=== PATIENT | male | born 1955 | race African-American/Black ===

== ENCOUNTER 2017-03-01 13:03 | Inpatient (IN) | payer MEDICAID, OTHER ==
--- NOTE | 2017-03-01 13:42 | EDPHY ---
H & P Stated Complaint: liver failure, worsening pain and ascites x1 month Time Seen by Provider: 03/01/17 13:27 HPI/ROS: CHIEF COMPLAINT: Abdominal pain, fever HISTORY OF PRESENT ILLNESS: Patient is a 62-year-old man with a history of hepatitis C who comes to the emergency department complaining of diffuse abdominal pain and fever last night of 101.8. He went to an urgent care this morning who told him he had ascites and told him to come directly to the emergency department. He and his significant other also complains that he has been fatigued. No diarrhea, no vomiting. He did take some Gas-X last night which she states helped to some degree. No urinary symptoms. REVIEW OF SYSTEMS: Constitutional: denies: chills, fever, recent illness, recent injury EENTM: denies: blurred vision, double vision, nose congestion Respiratory: denies: cough, shortness of breath Cardiac: denies: chest pain, irregular heart rate, lightheadedness, palpitations Gastrointestinal/Abdominal: denies: abdominal pain, diarrhea, nausea, vomiting, blood streaked stools Genitourinary: denies: dysuria, frequency, hematuria, pain Musculoskeletal: denies: joint pain, muscle pain Skin: denies: lesions, rash, jaundice, bruising Neurological: denies: headache, numbness, paresthesia, tingling, dizziness, weakness Hematologic/Lymphatic: denies: blood clots, easy bleeding, easy bruising Immunologic/allergic: denies: HIV/AIDS, transplant EXAM: GENERAL: Well-appearing, well-nourished and in no acute distress. No lethargy or confusion HEAD: Atraumatic, normocephalic. EYES: Slightly jaundice eyes which states her baseline, Pupils equal round and reactive to light, extraocular movements intact, sclera anicteric, conjunctiva are normal. ENT: TMs normal, nares patent, oropharynx clear without exudates. Moist mucous membranes. NECK: Normal range of motion, supple without lymphadenopathy or JVD. LUNGS: Breath sounds clear to auscultation bilaterally and equal. No wheezes rales or rhonchi. HEART: Regular rate and rhythm without murmurs, rubs or gallops. ABDOMEN: Distension, Soft, nontender, normoactive bowel sounds. No guarding, no rebound. No masses appreciated. BACK: No CVA tenderness, no spinal tenderness, step-offs or deformities EXTREMITIES: Negative asterixis, negative tremor, Normal range of motion, no pitting or edema. No clubbing or cyanosis. NEUROLOGICAL: Cranial nerves II through XII grossly intact. Normal speech, normal gait. 5/5 strength, normal movement in all extremities, normal sensation PSYCH: Normal mood, normal affect. SKIN: Warm, dry, normal turgor, no visible rashes or lesions. Source: Patient Exam Limitations: No limitations - Personal History Current Tetanus/Diphtheria Vaccine: Yes Tetanus Vaccine Date: 2008 - Medical/Surgical History Hx Asthma: No Hx Chronic Respiratory Disease: No Hx Diabetes: No Hx Cardiac Disease: No Hx Renal Disease: No Hx Cirrhosis: Yes Hx Alcoholism: Yes Hx HIV/AIDS: No Hx Splenectomy or Spleen Trauma: No Other PMH: Hep C, liver failure - Family History Significant Family History: No pertinent family hx - Social History Smoking Status: Former smoker Alcohol Use: Sober Drug Use: None Constitutional: Initial Vital Signs Temperature (C) 36.8 C 03/01/17 13:08 Heart Rate 94 03/01/17 13:08 Respiratory Rate 18 03/01/17 13:08 Blood Pressure 150/87 H 03/01/17 13:08 O2 Sat (%) 96 03/01/17 13:08 O2 Delivery Mode Room Air Allergies/Adverse Reactions: ibuprofen Allergy (Verified 03/01/17 13:08) Home Medications: Medication Instructions Recorded Herbals/Supplements -Info Only 1 ea PO DAILY 03/01/17 Medical Decision Making - Diagnostics Imaging Results: Imaging Impressions Abdomen CT 03/01/17 13:39 Impression: 1. Hepatomegaly with heterogeneous appearance of the anterior and posterior inferior right hepatic lobe, nonspecific but concerning for potential infiltrative hepatocellular neoplasm given the patient's chronic hepatitis C history. What is the patient's serum alpha fetoprotein level? 2. Contracted gallbladder. 3. Ascites, with the largest pocket seen in the right lower quadrant of the abdomen. Given the patient's history of fever, SBP is not excluded. 4. There is no evidence of a mechanical bowel obstruction or pneumoperitoneum. 5. Urinary bladder wall thickening. Correlation with urinalysis is suggested. 6. Right basilar subsegmental atelectasis with trace right pleural effusion. 7. Mild nonspecific distal thoracic esophageal wall thickening. Findings were discussed with LARRY GORE MD at 15:24, on 03/01/2017. ED Course/Re-evaluation: The patient is doing well with fluids. Vital signs remained stable. We discussed his CT results. I will admit the medical service. He will likely return require paracentesis with ultrasound guidance. Antibiotics have been started. 4:30 p.m. I discussed the case with Dr. snow who agrees with admission and requests ultrasound-guided paracentesis. Differential Diagnosis: Partial list of the Differential diagnosis considered include but were not limited to; spontaneous bacterial peritonitis, ascites, obstruction, perforation, volvulus and although unlikely based on the history and physical exam, I also considered ischemia, acute coronary disease, pneumonia, urinary tract infection, dissection, aneurysm. - Data Points Laboratory Results: Laboratory Results 03/01/17 13:30 03/01/17 13:30 03/01/17 03/01/17 03/01/17 14:10 13:40 13:30 WBC RBC Hgb Hct MCV MCH MCHC RDW Plt Count MPV Neut % (Auto) Lymph % (Auto) [place] % (Auto) Eos % (Auto) Baso % (Auto) Nucleat RBC Rel Count Absolute Neuts (auto) Absolute Lymphs (auto) Absolute Monos (auto) Absolute Eos (auto) Absolute Basos (auto) Absolute Nucleated RBC Immature Gran % Immature Gran # Platelet Estimate Polychromasia Hypochromasia Microcytic Cells Target Cells Oval Macrocytes Echinocytes Schistocytes PT INR APTT VBG Lactic Acid 4.0 mmol/L H mmol/L (0.7-2.1) Sodium 133 mEq/L L mEq/L (134-144) Potassium 4.1 mEq/L mEq/L (3.5-5.2) Chloride 100 mEq/L mEq/L (97-110) Carbon Dioxide 20 mEq/l L mEq/l (22-31) Anion Gap 13 mEq/L mEq/L (8-16) BUN 22 mg/dL mg/dL (7-23) Creatinine 1.4 mg/dL H mg/dL (0.7-1.3) Estimated GFR 52 Glucose 86 mg/dL mg/dL (70-100) Calcium 8.3 mg/dL L mg/dL (8.5-10.4) Total Bilirubin 5.6 mg/dL H mg/dL (0.1-1.4) Conjugated Bilirubin 3.8 mg/dL H mg/dL (0.0-0.5) Unconjugated Bilirubin 1.8 mg/dL H mg/dL (0.0-1.1) AST > 750 IU/L H IU/L (17-59) ALT 69 IU/L IU/L (21-72) Alkaline Phosphatase 152 IU/L H IU/L (38-126) Total Protein 9.0 g/dL H g/dL (6.3-8.2) Albumin 3.0 g/dL L g/dL (3.5-5.0) Lipase 213 IU/L IU/L (23-300) Urine Color DM Urine Appearance CLEAR Urine pH 5.0 (5.0-7.5) Ur Specific [place] 1.023 (1.002-1.030) Urine Protein NEGATIVE (NEGATIVE) Urine Ketones TRACE H (NEGATIVE) Urine Blood NEGATIVE (NEGATIVE) Urine Nitrate NEGATIVE (NEGATIVE) Urine Bilirubin POSITIVE H (NEGATIVE) Urine Urobilinogen 4.0 EU H EU (0.2-1.0) Ur Leukocyte Esterase NEGATIVE (NEGATIVE) Urine Glucose NEGATIVE (NEGATIVE) 03/01/17 03/01/17 13:30 13:30 WBC 10.53 10^3/uL H 10^3/uL (3.80-9.50) RBC 4.10 10^6/uL L 10^6/uL (4.40-6.38) Hgb 10.5 g/dL L g/dL (13.7-17.5) Hct 29.7 % L % (40.0-51.0) MCV 72.4 fL L fL (81.5-99.8) MCH 25.6 pg L pg (27.9-34.1) MCHC 35.4 g/dL g/dL (32.4-36.7) RDW 26.7 % H % (11.5-15.2) Plt Count 440 10^3/uL H 10^3/uL (150-400) MPV 9.9 fL fL (8.7-11.7) Neut % (Auto) 68.2 % % (39.3-74.2) Lymph % (Auto) 19.5 % % (15.0-45.0) Caroline % (Auto) 10.0 % % (4.5-13.0) Eos % (Auto) 0.2 % L % (0.6-7.6) Baso % (Auto) 0.5 % % (0.3-1.7) Nucleat RBC Rel Count 0.5 % H % (0.0-0.2) Absolute Neuts (auto) 7.19 10^3/uL H 10^3/uL (1.70-6.50) Absolute Lymphs (auto) 2.05 10^3/uL 10^3/uL (1.00-3.00) Absolute Monos (auto) 1.05 10^3/uL H 10^3/uL (0.30-0.80) Absolute Eos (auto) 0.02 10^3/uL L 10^3/uL (0.03-0.40) Absolute Basos (auto) 0.05 10^3/uL 10^3/uL (0.02-0.10) Absolute Nucleated RBC 0.05 10^3/uL H 10^3/uL (0-0.01) Immature Gran % 1.6 % H % (0.0-1.1) Immature Gran # 0.17 10^3/uL H 10^3/uL (0.00-0.10) Platelet Estimate INCREASED H (ADEQ) Polychromasia 1+ H Hypochromasia 2+ H Microcytic Cells 1+ H Target Cells 1+ H Oval Macrocytes 2+ H Echinocytes 1+ H Schistocytes 1+ H PT 21.8 SEC H SEC (12.0-15.0) INR 1.89 H (0.83-1.16) APTT 29.9 SEC SEC (23.0-38.0) VBG Lactic Acid Sodium Potassium Chloride Carbon Dioxide Anion Gap BUN Creatinine Estimated GFR Glucose Calcium Total Bilirubin Conjugated Bilirubin Unconjugated Bilirubin AST ALT Alkaline Phosphatase Total Protein Albumin Lipase Urine Color Urine Appearance Urine pH Ur Specific [place] Urine Protein Urine Ketones Urine Blood Urine Nitrate Urine Bilirubin Urine Urobilinogen Ur Leukocyte Esterase Urine Glucose Medications Given: Discontinued Medications Ceftriaxone Sodium/Dextrose (Rocephin 1 Gm (Premix)) 50 mls @ 100 mls/hr IV EDNOW ONE PRN Reason: Protocol Stop: 03/01/17 14:44 Last Admin: 03/01/17 14:25 Dose: 50 mls Sodium Chloride (Ns) 2,500 mls @ 5,000 mls/hr 30 ml/kg infuse over 30 min ( 2500 ml) IV EDNOW ONE PRN Reason: Protocol Stop: 03/01/17 14:44 Last Admin: 03/01/17 14:30 Dose: 2,500 mls Departure - Departure Dis[facility]: [facility] Clinical Impression: Spontaneous bacterial peritonitis Condition: Fair
[2017-03-01 13:48] LABS: PLATELET COUNT 440 10^3/uL (150-400)
[2017-03-01 13:57] LABS: INR 1.89 (0.83-1.16); PROTIME(PATIENT) 21.8 SEC (12.0-15.0)
[2017-03-01] MEDS ORDERED: NS 2,500 ML IV ONE (14:15)
[2017-03-01] MEDS ORDERED: IOPAMIDOL (ISOVUE-300) 100 ML BTL ONE (14:34)
[2017-03-01] MEDS ORDERED: oxyCODONE IR 5 MG TAB PO PRN (16:44)
[2017-03-01] MEDS ORDERED: ONDANSETRON DISINTEGRATING 4 MG TAB PO PRN (16:44)
[2017-03-01] MEDS ORDERED: ONDANSETRON 4 MG/2 ML VIAL IVP PRN (16:44)
[2017-03-01] MEDS ORDERED: NS 1,000 ML IV SCH (16:45)
[2017-03-01] MEDS ORDERED: LIDOCAINE 1% 300 MG/30 ML SDV ONE (16:50)
--- NOTE | 2017-03-01 17:07 | PDGENHP ---
History and Physical - Chief Complaint Acute abdominal pain - History of Present Illness Primary care provider: None HPI: 62-year-old male presenting with acute abdominal pain characterized as a bloating sensation located diffusely across his abdomen with associated fever of 101.8 degrees F, generalized fatigue, jaundice. Patient reports onset of symptoms approximately 2 weeks ago, and duration progressive and worsening thereafter. He has also been experiencing approximately 1 month of early satiety, poor appetite, exacerbated by his abdominal bloating. He has attempted to manage his symptoms with Gas-X, and this is mildly alleviated the bloating, but immediately returns. He has also noticed a dark discoloration to his urine, but has not noticed any change in frequency and denies any dysuria. He has not been experiencing any diarrhea or any cognitive changes. Since he quit smoking 2 weeks ago, the patient has noted an increase in productive cough but otherwise denies any sore throat, shortness of breath, or rhinorrhea. History Information - Allergies/Home Medication List Allergies/Adverse Reactions: ibuprofen Allergy (Verified 03/01/17 13:08) Home Medications: Herbals/Supplements -Info Only 1 ea PO DAILY 03/01/17 [Last Taken Unknown] I have personally reviewed and updated: family history, medical history, social history, surgical history - Past Medical History Additional medical history: Hepatitis C virus diagnosis years ago, with evaluation by Dr. Hany Reyes in 2009. Gout, currently on a supplement over-the- counter - Surgical History Reports: no pertinent surgical hx - Family History Additional family history: No renal disease, no liver disease - Social History Smoking Status: Former smoker (Quit 2 weeks ago) Alcohol Use: Sober (Previous heavy use, quit 2 weeks ago) Drug Use: None (No IV drug use) Additional social history: Normally independent in his ADLs Review of Systems Review of Systems: ROS: 10pt was reviewed & negative except for what was stated in HPI & below Constitutional: Reports: fever, weakness, weight loss Respiratory: Reports: cough Gastrointestinal: Reports: abdominal pain, constipation, other (Bloating distension) Physical Exam Physical Exam: Temp Pulse Resp BP Pulse Ox 36.9 C 83 18 164/99 H 96 03/01/17 16:25 03/01/17 16:25 03/01/17 16:25 03/01/17 16:25 03/01/17 16:25 Constitutional: no apparent distress, not in pain, chronically ill appearing, uncomfortable Eyes: PERRL, EOMI, icteric sclera Ears, Nose, Mouth, Throat: moist mucous membranes, hearing normal, ears appear normal, no oral mucosal ulcers Cardiovascular: regular rate and rhythym, no murmur, rub, or gallop, edema ( Trace bilateral lower extremity) Respiratory: no respiratory distress, no rales or rhonchi, clear to auscultation Gastrointestinal: normoactive bowel sounds, tenderness (Mild diffusely throughout), ascites, distension (Moderate), other (Very warm abdomen), No guarding Skin: warm, other (Jaundiced), No rash Neurologic: AAOx3, sensation intact bilaterally, No weakness Psychiatric: interacting appropriately, not anxious, not encephalopathic, thought process linear Lab Data & Imaging Review 03/01/17 13:30 03/01/17 13:30 WBC 10.53 10^3/uL (3.80-9.50) H 03/01/17 13:30 RBC 4.10 10^6/uL (4.40-6.38) L 03/01/17 13:30 Hgb 10.5 g/dL (13.7-17.5) L 03/01/17 13:30 Hct 29.7 % (40.0-51.0) L 03/01/17 13:30 MCV 72.4 fL (81.5-99.8) L 03/01/17 13:30 MCH 25.6 pg (27.9-34.1) L 03/01/17 13:30 MCHC 35.4 g/dL (32.4-36.7) 03/01/17 13:30 RDW 26.7 % (11.5-15.2) H 03/01/17 13:30 Plt Count 440 10^3/uL (150-400) H 03/01/17 13:30 MPV 9.9 fL (8.7-11.7) 03/01/17 13:30 Neut % (Auto) 68.2 % (39.3-74.2) 03/01/17 13:30 Lymph % (Auto) 19.5 % (15.0-45.0) 03/01/17 13:30 [place] % (Auto) 10.0 % (4.5-13.0) 03/01/17 13:30 Eos % (Auto) 0.2 % (0.6-7.6) L 03/01/17 13:30 Baso % (Auto) 0.5 % (0.3-1.7) 03/01/17 13:30 Nucleat RBC Rel Count 0.5 % (0.0-0.2) H 03/01/17 13:30 Absolute Neuts (auto) 7.19 10^3/uL (1.70-6.50) H 03/01/17 13:30 Absolute Lymphs (auto) 2.05 10^3/uL (1.00-3.00) 03/01/17 13:30 Absolute Monos (auto) 1.05 10^3/uL (0.30-0.80) H 03/01/17 13:30 Absolute Eos (auto) 0.02 10^3/uL (0.03-0.40) L 03/01/17 13:30 Absolute Basos (auto) 0.05 10^3/uL (0.02-0.10) 03/01/17 13:30 Absolute Nucleated RBC 0.05 10^3/uL (0-0.01) H 03/01/17 13:30 Immature Gran % 1.6 % (0.0-1.1) H 03/01/17 13:30 Immature Gran # 0.17 10^3/uL (0.00-0.10) H 03/01/17 13:30 Platelet Estimate INCREASED (ADEQ) H 03/01/17 13:30 Polychromasia 1+ H 03/01/17 13:30 Hypochromasia 2+ H 03/01/17 13:30 Microcytic Cells 1+ H 03/01/17 13:30 Target Cells 1+ H 03/01/17 13:30 Oval Macrocytes 2+ H 03/01/17 13:30 Echinocytes 1+ H 03/01/17 13:30 Schistocytes 1+ H 03/01/17 13:30 PT 21.8 SEC (12.0-15.0) H 03/01/17 13:30 INR 1.89 (0.83-1.16) H 03/01/17 13:30 APTT 29.9 SEC (23.0-38.0) 03/01/17 13:30 VBG Lactic Acid 3.3 mmol/L (0.7-2.1) H 03/01/17 16:30 Sodium 133 mEq/L (134-144) L 03/01/17 13:30 Potassium 4.1 mEq/L (3.5-5.2) 03/01/17 13:30 Chloride 100 mEq/L (97-110) 03/01/17 13:30 Carbon Dioxide 20 mEq/l (22-31) L 03/01/17 13:30 Anion Gap 13 mEq/L (8-16) 03/01/17 13:30 BUN 22 mg/dL (7-23) 03/01/17 13:30 Creatinine 1.4 mg/dL (0.7-1.3) H 03/01/17 13:30 Estimated GFR 52 03/01/17 13:30 Glucose 86 mg/dL (70-100) 03/01/17 13:30 Calcium 8.3 mg/dL (8.5-10.4) L 03/01/17 13:30 Total Bilirubin 5.6 mg/dL (0.1-1.4) H 03/01/17 13:30 Conjugated Bilirubin 3.8 mg/dL (0.0-0.5) H 03/01/17 13:30 Unconjugated Bilirubin 1.8 mg/dL (0.0-1.1) H 03/01/17 13:30 AST > 750 IU/L (17-59) H 03/01/17 13:30 ALT 69 IU/L (21-72) 03/01/17 13:30 Alkaline Phosphatase 152 IU/L (38-126) H 03/01/17 13:30 Total Protein 9.0 g/dL (6.3-8.2) H 03/01/17 13:30 Albumin 3.0 g/dL (3.5-5.0) L 03/01/17 13:30 Lipase 213 IU/L (23-300) 03/01/17 13:30 Urine Color DM 03/01/17 14:10 Urine Appearance CLEAR 03/01/17 14:10 Urine pH 5.0 (5.0-7.5) 03/01/17 14:10 Ur Specific [place] 1.023 (1.002-1.030) 03/01/17 14:10 Urine Protein NEGATIVE (NEGATIVE) 03/01/17 14:10 Urine Ketones TRACE (NEGATIVE) H 03/01/17 14:10 Urine Blood NEGATIVE (NEGATIVE) 03/01/17 14:10 Urine Nitrate NEGATIVE (NEGATIVE) 03/01/17 14:10 Urine Bilirubin POSITIVE (NEGATIVE) H 03/01/17 14:10 Urine Urobilinogen 4.0 EU (0.2-1.0) H 03/01/17 14:10 Ur Leukocyte Esterase NEGATIVE (NEGATIVE) 03/01/17 14:10 Urine Glucose NEGATIVE (NEGATIVE) 03/01/17 14:10 Visualized and Interpreted imaging results: Yes Interpretation: Abdominal CT demonstrating ascites, heterogenous appearance to the liver, atelectasis Assessment & Plan Assessment: 62-year-old male presents with ascites and suspected spontaneous bacterial peritonitis complicated by acute kidney injury, metabolic acidosis, hyponatremia Plan: 1. Ascites with suspected cirrhosis. Acute, new problem this provider, further workup indicated. Most likely secondary to cirrhosis in the setting of progressive hepatitis C virus and heavy alcohol use, with possible hepatic cell carcinoma on abdominal CT imaging -send cytology from ascitic fluid -send alpha fetoprotein -continue to monitor synthetic function of liver with daily INR, liver panel -recommend complete sobriety, avoid Tylenol -will get GI consult as the patient is at high risk for developing hepatorenal syndrome 2. Suspected spontaneous bacterial peritonitis. Acute, new problem this provider, further workup indicated. Evidenced by fever, warm, tender abdomen in the setting of ascites with leukocytosis -discussed with Dr. Delgado Olson, he has informed me that he has discussed with Dr. Georgia Leblanc and she will perform ultrasound-guided urgent paracentesis, fluid to be sent for cell count, diff, culture -administer empiric IV ceftriaxone -send blood cultures -will hold on infectious disease consultation until the above results have been obtained -will send respiratory viral panel to ensure the patient's fevers of symptom and fatigued are not secondary to a viral infection -as needed oxycodone, antiemetics 3. Acute kidney injury. Most likely secondary to hypovolemia in the setting of infection and cirrhosis -status post IV fluids emergency department, continue with ongoing normal saline , repeat level in a.m., monitor strict I&Os 4. Hyponatremia. Acute, most likely secondary to poor renal perfusion in the setting of above, give normal saline and reassess in a.m. 5. Metabolic acidosis. Acute, secondary to lactic acid, most likely with poor clearance in the setting of cirrhosis, I do not believe that the patient has severe sepsis at this time and we will repeat lactic acid level and anticipate that it may remain elevated despite the patient being hemodynamically stable -continue to trend 6. End-stage liver disease. The patient's lab values are suggestive of end- stage liver disease with an elevated INR, elevated creatinine, elevated bilirubin, elevated transaminases, and his elevated platelet count may be reactive in the setting of infection -as mentioned above, will consult with Gastroenterology -order outside records including most recent clinic note from Dr. 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 Regular Prophylaxis. High risk patient, heparin subcu Code. Do not resuscitate per patient, his partner Kaelyn is MD [facility] Disposition. Anticipated discharge uncertain this time, anticipated length stay is greater than 48 hours warranting inpatient admission status reasonable medical necessity including ascites with suspected cirrhosis and end-stage liver disease in the setting of spontaneous bacterial peritonitis requiring further workup and close monitoring and management.
[2017-03-01] MEDS ORDERED: diphenhydrAMINE 50 MG CAP PO PRN (17:16)
[2017-03-01] MEDS ORDERED: PHYTONADIONE 2.5 MG/2.5 ML ORAL UDL PO ONE ×2 (17:48→18:45)
[2017-03-01] MEDS ORDERED: ALBUMIN 25% 100 ML IV ONE (19:07)
--- NOTE | 2017-03-01 21:52 | GCON ---
[f rep st] CONSULTATION REQUESTING PHYSICIAN: Feliberto Vanegas MD REASON FOR CONSULTATION: End-stage liver disease with ascites, possible SBP. I have been asked by Dr. Vanegas to see this patient in consultation for chief complaint of ascites an d probable end-stage liver disease with a concern for SBP. Patient is a 62-year-old man who has been documented to have hepatitis C many years ago. He was followed in our practice, but had been drinki ng alcohol heavily and so was not a candidate for interferon, ribavirin therapy. He was advised to d ecrease his drinking, which he did temporarily. He never underwent any eradication therapy for his h epatitis C. He continued to drink until approximately 2 weeks ago. Over the last few weeks, he has been feeling more fatigued with abdominal bloating and discomfort. He had a fever of 101.8 when he w as at home and he also recognized some jaundice. He presented to the hospital for evaluation. Of no te, he did stop smoking and drinking approximately 2 weeks ago related to these symptoms and him turn ing 62. He is now admitted for the above and I am called to help evaluate and treat in that regard. PAST MEDICAL/SURGICAL HISTORY: Hepatitis C, gout. No previous surgeries. MEDICATIONS: At home included herbal supplements. In the hospital, he received Rocephin 1 g IV to b e ordered daily, Benadryl p.r.n., Zofran p.r.n., oxycodone p.r.n., vitamin K 10 mg once p.o., Mylicon p.r.n. ALLERGIES: No known drug allergies. SOCIAL HISTORY: He quit smoking 2 weeks ago and he quit drinking 2 weeks ago. He admits to a number of beers as well as a number of shots per day. He lives up in [place]. He is independent in his activity of daily living. FAMILY HISTORY: No history of liver disease. An aunt did have colon cancer at an advanced age. The re is no other colon cancer or colon polyps to his knowledge. REVIEW OF SYSTEMS: A complete Review of Systems was performed and negative other than noted in the H PI with the exception of some nonproductive cough, which may be related to his tobacco intake. Perti nelillie negatives include no chest pain, diaphoresis, palpitations. PHYSICAL EXAM: GENERAL: Well-developed, well-nourished male, sitting in bed, no acute distress. ANTHONY SIGNS: Blood pressure is 150/94, his pulse is 93, his respiratory rate is 18, he is 97% on room air, temperature is 37.4. EYES: Icteric. KINDRA, EOMI. MOUTH: No lesions. NECK: Supple. No JVD. BACK: No spine tenderness. No CVA tenderness. LUNGS: Clear to auscultation. CARDIAC: S1, S2. Regular rate and rhythm. No murmurs, rubs or gallops appreciated. ABDOMEN: Bowel sounds are jeffery l in pitch and frequency, however, it is soft with minimal tenderness throughout. No rebound. No gu arding. Mildly distended. EXTREMITIES: No cyanosis or clubbing. He has trace lower extremity bila teral edema. NEUROLOGIC: Cranial nerves intact. Nonfocal. No asterixis. LABORATORY DATA: WBC 10.53, hemoglobin 10.5, hematocrit 29.7, platelet count is 440, MCV is 72.4, RD W is 26.7. Pro time 21.8, INR 1.89, PTT 29.9. Sodium 133, potassium 4.3, chloride 100, bicarb 20, B UN 22, creatinine 1.4, glucose 86, calcium 8.3, total bili 5.6, conjugated 3.8, unconjugated 1.8. T is greater than 750, ALT 69, alk phos is 152, total protein is 9, albumin is 3, lipase is 213. Alp dai-fetoprotein is pending. Urinalysis showed trace ketones, positive bilirubin and urobilinogen, neg ative for nitrates, leukocyte esterase. Paracentesis was performed today. WBCs are pending. RBCs a re pending. Total protein is 2.3, albumin is 1.0, glucose is 72. Its appearance is cloudy and it is red in color. Abdominal CT scan performed today at 1339. Impression is hepatomegaly with heterogen eous appearance of the anterior and posterior inferior right hepatic lobe, nonspecific but concerning for potential infiltrative hepatocellular neoplasm given the patient's chronic hepatitis C history. Contracted gallbladder, ascites with the largest pocket seen in the right lower quadrant. No eviden ce of obstruction or pneumoperitoneum. Urinary wall bladder is thickened. Correlate with urinalysis is suggested. Right basal subsegmental atelectasis with trace right pleural effusion, mild nonspeci fic distal thoracic esophageal wall thickening. Paracentesis was performed today. There was a pocke t in the right upper quadrant amenable to sampling. A total of 1.4 basically blood was aspirated fro m the abdomen. Post operation ultrasound showed significant interval decrease of amount of fluid abdulaziz t is present in the right upper quadrant. ASSESSMENT: 1. Ascites. 2. Cirrhosis, end-stage liver disease. 3. Abnormal imaging studies with possible infiltrative process in the liver and ascites. 4. History of increased alcohol intake. 5. Elevated liver enzymes, bilirubin consistent with his underlying liver disease. 6. Microcytic anemia. RECOMMENDATIONS: 1. Follow up WBC and RBC and tap. 2. Continue Rocephin for now. If evidence of spontaneous bacterial peritonitis with elevated WBC co unt, may continue. If WBC count is normal, may stop the antibiotic. 3. I will give 25 g of salt poor albumin intravenous now to improve renal perfusion. 4. Daily weights. 5. 2 g sodium diet. 6. Follow kidney function. If it is improving, we can then consider adding diuretics. 7. Check alpha-fetoprotein. If greater than a 1000, it is diagnostic of hepatocellular carcinoma. 8. Consideration for endoscopies for his microcytic anemia pending results of above. 9. Lifelong alcohol abstinence. 10. Lifelong tobacco abstinence. 11. Consideration of treatment of hepatitis C pending results of above. 12. Metabolic acidosis, hyponatremia, as per hospitalist. 13. Further measures following above and clinical course. Certainly, the onset of ascites and abnormal imaging of the liver is concerning for hepatocellular ca rcinoma. He may require a liver biopsy pending results of alpha-fetoprotein. If alpha-fetoprotein i s greater than 1000, that is diagnostic and a biopsy may not be necessary. Further workup of his azael rocytic anemia and treatment of his hepatitis C would depend on the presence of hepatocellular carcin marifer. I did review the pathophysiology of ascites accumulation and that the low-sodium diet is necess venkata. He may need a fluid restriction for hyponatremia if it continues. I stressed the importance of alcohol abstinence. He will need to buy a scale to obtain daily weights. He said he will do this w hen he is discharged prior to returning up to [place]. Thank you very much for allowing me to participate in this patient's health care. Please do not hesi lee to call me with any questions. /[id number]/MODL
[2017-03-01] MEDS ORDERED: HEPARIN 5,000 UNIT/0.5 ML SYR SC SCH (22:00)
[2017-03-01 22:03] LABS: PLATELET COUNT 405 10^3/uL (150-400)
[2017-03-02 05:11] LABS: PLATELET COUNT 387 10^3/uL (150-400)
--- NOTE | 2017-03-02 08:27 | PDMN ---
Medical Necessity Medical necessity: M570 liver disease complications: spontaneous bacterial peritonitis, fever, abd pain, leukocytosis, suspect cirrhosis, HX of hep C. heavy ETOH usage, poss hepatic cell carcinoma on CT , ESLD, elevated liver enzymes
[2017-03-02] MEDS ORDERED: *PHM DO NOT USE-CEFOTAXIME 40 MG/ML IV NEWBORN SYR IV SCH (08:30)
[2017-03-02] MEDS: cefTRIAXone 2 GM in D5W 50 ML IV SCH (09:27)
--- NOTE | 2017-03-02 15:55 | SOAPPROG ---
SCOT Progress Note Assessment/Plan: Assessment:Plan: 1) HCC - AFP > 360,000, CT with multiple lesions, will ask Oncology to see although likely recommendation and pt choice will be no treatment/hospice 2) ascites - from HCC/cirrhosis - start Lasix 40mg and Aldactone 100mg, daily weights, 2 gram sodium diet 3) Hep C - mute point given his HCC 4) need for EGD - will consider EGD in near future to eval for varices prior to pt going to [place] to see his Grandchildren. If present start prophylaxis for variceal bleed. 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 with PO Cipro or Bactrim DS will follow 03/02/17 15:55 Subjective: CC- HCC, cirrhosis, ascites pt taking his new dx in stride, he is realistic and appropriate in his thinking He doesn't want to decrease quality of life so will prob not do any chemo He does want to go to [place] to see his grandkids Objective: Vital Signs Temp Pulse Resp BP Pulse Ox 37.1 C 86 20 143/90 H 95 03/02/17 12:59 03/02/17 12:59 03/02/17 12:59 03/02/17 12:59 03/02/17 12:59 Microbiology 03/01/17 17:02 Gram Stain - Final Peritoneal Fluid - Aspirate 03/02/17 01:19 Respiratory Panel (PCR) - Final Nasal, Sinus - Swab No Organism Detected Laboratory Results 03/02/17 04:43 03/02/17 04:43 03/01/17 03/02/17 03/03/17 05:59 05:59 05:59 Intake Total 3878 Output Total 3375 Balance 503 PT 21.8 SEC (12.0-15.0) H 03/01/17 13:30 INR 1.89 (0.83-1.16) H 03/01/17 13:30 A+O no asterixis CTA +BS, soft distended, nt S1S2 Laboratory Tests 03/01/17 03/01/17 03/01/17 13:30 13:30 17:02 BUN 22 Creatinine 1.4 H Tumor Marker AFP [id number] H Peritoneal WBC 1811 H 03/02/17 04:43 BUN 18 Creatinine 1.1 Tumor Marker AFP Peritoneal WBC ICD10 Worksheet Patient Problems: Problems Problem Status Onset Spontaneous bacterial peritonitis Acute
--- NOTE | 2017-03-02 15:55 | SOAPPROG ---
SCOT Progress Note Assessment/Plan: Assessment:Plan: 1) HCC - AFP > 360,000, CT with multiple lesions, will ask Oncology to see although likely recommendation and pt choice will be no treatment/hospice 2) ascites - from HCC/cirrhosis - start Lasix 40mg and Aldactone 100mg, daily weights, 2 gram sodium diet 3) Hep C - mute point given his HCC 4) need for EGD - will consider EGD in near future to eval for varices prior to pt going to [place] to see his Grandchildren. If present start prophylaxis for variceal bleed. 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 with PO Cipro or Bactrim DS will follow 03/02/17 15:55 Subjective: CC- HCC, cirrhosis, ascites pt taking his new dx in stride, he is realistic and appropriate in his thinking He doesn't want to decrease quality of life so will prob not do any chemo He does want to go to [place] to see his grandkids Objective: Vital Signs Temp Pulse Resp BP Pulse Ox 37.1 C 86 20 143/90 H 95 03/02/17 12:59 03/02/17 12:59 03/02/17 12:59 03/02/17 12:59 03/02/17 12:59 Microbiology 03/01/17 17:02 Gram Stain - Final Peritoneal Fluid - Aspirate 03/02/17 01:19 Respiratory Panel (PCR) - Final Nasal, Sinus - Swab No Organism Detected Laboratory Results 03/02/17 04:43 03/02/17 04:43 03/01/17 03/02/17 03/03/17 05:59 05:59 05:59 Intake Total 3878 Output Total 3375 Balance 503 PT 21.8 SEC (12.0-15.0) H 03/01/17 13:30 INR 1.89 (0.83-1.16) H 03/01/17 13:30 A+O no asterixis CTA +BS, soft distended, nt S1S2 Laboratory Tests 03/01/17 03/01/17 03/01/17 13:30 13:30 17:02 BUN 22 Creatinine 1.4 H Tumor Marker AFP [id number] H Peritoneal WBC 1811 H 03/02/17 04:43 BUN 18 Creatinine 1.1 Tumor Marker AFP Peritoneal WBC ICD10 Worksheet Patient Problems: Problems Problem Status Onset Spontaneous bacterial peritonitis Acute
--- NOTE | 2017-03-02 15:55 | SOAPPROG ---
SCOT Progress Note Assessment/Plan: Assessment:Plan: 1) HCC - AFP > 360,000, CT with multiple lesions, will ask Oncology to see although likely recommendation and pt choice will be no treatment/hospice 2) ascites - from HCC/cirrhosis - start Lasix 40mg and Aldactone 100mg, daily weights, 2 gram sodium diet 3) Hep C - mute point given his HCC 4) need for EGD - will consider EGD in near future to eval for varices prior to pt going to [place] to see his Grandchildren. If present start prophylaxis for variceal bleed. 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 with PO Cipro or Bactrim DS will follow 03/02/17 15:55 Subjective: CC- HCC, cirrhosis, ascites pt taking his new dx in stride, he is realistic and appropriate in his thinking He doesn't want to decrease quality of life so will prob not do any chemo He does want to go to [place] to see his grandkids Objective: Vital Signs Temp Pulse Resp BP Pulse Ox 37.1 C 86 20 143/90 H 95 03/02/17 12:59 03/02/17 12:59 03/02/17 12:59 03/02/17 12:59 03/02/17 12:59 Microbiology 03/01/17 17:02 Gram Stain - Final Peritoneal Fluid - Aspirate 03/02/17 01:19 Respiratory Panel (PCR) - Final Nasal, Sinus - Swab No Organism Detected Laboratory Results 03/02/17 04:43 03/02/17 04:43 03/01/17 03/02/17 03/03/17 05:59 05:59 05:59 Intake Total 3878 Output Total 3375 Balance 503 PT 21.8 SEC (12.0-15.0) H 03/01/17 13:30 INR 1.89 (0.83-1.16) H 03/01/17 13:30 A+O no asterixis CTA +BS, soft distended, nt S1S2 Laboratory Tests 03/01/17 03/01/17 03/01/17 13:30 13:30 17:02 BUN 22 Creatinine 1.4 H Tumor Marker AFP [id number] H Peritoneal WBC 1811 H 03/02/17 04:43 BUN 18 Creatinine 1.1 Tumor Marker AFP Peritoneal WBC ICD10 Worksheet Patient Problems: Problems Problem Status Onset Spontaneous bacterial peritonitis Acute
[2017-03-02] MEDS: FUROSEMIDE 40 MG TAB PO SCH (16:25)
[2017-03-02] MEDS: SPIRONOLACTONE 100 MG TAB PO SCH (16:25)
[2017-03-02] MEDS ORDERED: IOPAMIDOL (ISOVUE-300) 100 ML BTL ONE (16:44)
--- NOTE | 2017-03-02 16:59 | GHP ---
[f rep st] HISTORY AND PHYSICAL DATE OF ADMISSION: 03/01/2017 REASON FOR CONSULTATION: Hepatocellular carcinoma. HISTORY OF PRESENT ILLNESS: The patient is a pleasant 62-year-old gentleman with a longstanding hist ory of hepatitis C. The patient reports 2-3 weeks of abdominal bloating and intermittent pain. He n oted jaundice. He became concerned and came to the hospital. A CT of the abdomen done yesterday at the time of admission revealed a possible hepatocellular carcinoma with associated hepatomegaly. The patient has a diffuse heterogeneous mass occupying the majority of the right lobe of the liver. The re may be a subtle thrombosis in a branch of the right portal vein. The patient had ascites. The mario ratliff underwent a palliative paracentesis yesterday. A total of 1.4 L of bloody fluid was removed fr om the abdomen. Given the concern for hepatocellular carcinoma, a serum AFP level was sent, which was markedly elevat ed at 363,000. The patient has been evaluated by Gastroenterology. When seen this evening, he is accompanied by his significant other. PAST MEDICAL HISTORY: 1. Chronic hepatitis C (patient has not undergone hepatitis C treatment). 2. Chronic alcoholism. 3. Gout. PAST SURGICAL HISTORY: None. FAMILY MEDICAL HISTORY: Noncontributory. SOCIAL HISTORY: The patient is not currently , though does have a significant other who lives locally. The patient lives in [place]. 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 He is a former smoker, quitting 2 weeks ago. He admits to hea vy alcohol use in the past, not having used alcohol for the past 2 weeks. He denies IV drug use. REVIEW OF SYSTEMS: As outlined above. Additionally reports intermittent nausea and occasional vomit ing. Denies hematemesis. Denies chest pain, cough. Reports mild exertional dyspnea. Denies extrem ity pain or swelling. Remainder of 10-point review of systems otherwise negative. PHYSICAL EXAM: GENERAL: Mild scleral icterus is present. The patient is alert, oriented, and appro priate. HEART: Regular. LUNGS: Sounds are decreased at the right base, otherwise clear. No wheez e or rhonchi. ABDOMEN: Moderately distended. No fluid wave at the current time. No pain. Smooth liver edge is palpable approximately 4 fingerbreadths below the costal margin. Bowel sounds normoact digna. No extremity swelling or edema. LABORATORY DATA: Serum alpha fetoprotein results and CT results as outlined above. Sodium 137, pota ssium 3.9, chloride 102, bicarb 20, total bilirubin is 4.4, conjugated is 3.1, AST is 1140, ALT 64, a lkaline phosphatase 146, albumin 2.4. White count 8.3, hemoglobin 9.0, hematocrit 24.9, MCV 71.6, pl atelet count is 387,000. PTT is 29.9, PT is 21.8, with an INR of 1.89. IMPRESSION: 1. Hepatocellular carcinoma with diffuse involvement of right lobe of liver and markedly elevated al pha-fetoprotein level. 2. Chronic hepatitis C. 3. History of alcohol abuse. 4. Microcytic anemia. 5. Mild coagulopathy of liver dysfunction. Mr. Monreal is a 62-year-old gentleman who presents with evidence of hepatocellular carcinoma. The CT findings and markedly elevated alpha-fetoprotein level are diagnostic of hepatocellular carcinoma, an d he does not require biopsy. I reviewed the diagnosis with him. The patient states that he is somewhat disinclined to pursue any active treatment, but would like more information before making a decision. I did personally review his imaging studies with Radiology. He has diffuse involvement of the right lobe of the liver. Webb lisset, it is unclear whether the tumor involves the left lobe of the liver, and thus I think an MRI wou ld be a good next step to better determine the overall extent of his disease. He is agreeable to doi ng this. If he were found to have only involvement of the right lobe of the liver, it would certainl y be reasonable to have him evaluated by a hepatobiliary surgical team. Given the extent of his righ t lobe involvement and his markedly elevated alpha-fetoprotein level, I suspect the left lobe will be involved. I have ordered a CT of the chest also to complete his staging. We briefly discussed treatment options for hepatocellular carcinoma. The patient had multiple questio ns which were answered. He may have a small right branch portal vein thrombosis. However, in light of his underlying diagnosis of hepatocellular cancer, these are generally not treated with anticoagul ation. I have discussed his case with Dr. Blood of gastroenterology, who has recommended to the [facility] that he consider an upper endoscopy to evaluate and potentially treat esophageal varices. These may be the source of the patient's anemia. The patient's questions were answered. Total time for today's visit was approximately 60 minutes, of which greater than 50% was spent in cou nseling and care coordination. /[id number]/MODL
--- NOTE | 2017-03-02 17:56 | ASMTCMCOM ---
CM Note CM Note Notes: Patient notified today by Dr. Dee that he has hepatocellular carcinoma. Patient currently uncertain what he may want to do regarding treatment. Patients partner here with hime. Case managment will follow to provide ongoing support and assist in decision making where appropriate. Date Signed: 03/02/2017 05:55 PM Electronically Signed By:VICETNE Major
--- NOTE | 2017-03-02 17:56 | ASMTCMCOM ---
CM Note CM Note Notes: Patient notified today by Dr. eDe that he has hepatocellular carcinoma. Patient currently uncertain what he may want to do regarding treatment. Patients partner here with hime. Case managment will follow to provide ongoing support and assist in decision making where appropriate. Date Signed: 03/02/2017 05:55 PM Electronically Signed By:VICENTE Major
--- NOTE | 2017-03-02 18:15 | HOSPPROG ---
Hospitalist Progress Note Assessment/Plan: Assessment: 62-year-old male presents with new diagnosis of hepatocellular carcinoma and spontaneous bacterial peritonitis Plan: 1. HCC. R lobe, possibly also left lobe, d/w patient and partner, at this point the patient is not inclined to pursue aggressive interventions, but he would appreciate any therapy that would optimize his current quality of life - d/w Pall Care, appreciate consult, they will advise patient about this best outpt options - appreciate Dr. Dee's consultation, getting MRI to gauge extent of disease in liver, which might influence tx recs - getting staging CT chest to help guide prognostic conversations 2. Spontaneous bacterial peritonitis. POA, likely cause of fever/leukocytosis/ abd pain, para results w/ 1,800 WBC, 30% neutrophils, GS/Cx pending - d/w pharmacy, Cefotaxime on back-order, started CTX 2g daily, D#06/19 abx - d/w Dr. Heath, she recommends shorter course of Abx since it is truly spontaneous and not 2/2 procedure or indwelling device, 10 total days tx - cont CTX 2g while in hospital, then select either Cefpodoxime 200mg bid or Levofloxacin 750mg daily for subsequent tx at discharge, w/ possible ongoing ppx per Dr. Blood - can narrow Abx per Cx results, if positive 3. Acute kidney injury. Most likely secondary to hypovolemia in the setting of infection and cirrhosis - status post IV fluids w/ improvement, cont to monitor 4. Hyponatremia. Acute, most likely secondary to poor renal perfusion in the setting of above - resolved, cont to monitor w/ diuretics 5. Metabolic acidosis. Acute, secondary to lactic acid, most likely with poor clearance in the setting of cirrhosis, no indication to continue trending - severe sepsis not present 6. End-stage liver disease and cirrhosis. 2/2 HCV/EtOH w/ new diagnosis HCC - starting lasix 40/aldactone 100, gauge effect - cont to monitor synthetic fxn labs and calculate MELD prior to DC - Dr. Blood recs EGD to eval for varices which would effect tx 7. Portal vein thrombosis. Small, 2/2 above, per Dr. Dee do not tx Diet. Regular Prophylaxis. High risk patient, heparin subcu Code. Do not resuscitate per patient, his partner Kaelyn urias MD PORocael Disposition. Anticipated discharge 03/03 vs. 03/04, pending stabilization of above. Subjective: abd pain improving, patient very accepting of dx Objective: Vital Signs Temp Pulse Resp BP Pulse Ox 37.6 C 85 18 167/98 H 93 03/02/17 16:05 03/02/17 16:05 03/02/17 16:05 03/02/17 16:05 03/02/17 16:05 Microbiology 03/01/17 17:02 Gram Stain - Final Peritoneal Fluid - Aspirate 03/02/17 01:19 Respiratory Panel (PCR) - Final Nasal, Sinus - Swab No Organism Detected Laboratory Results 03/02/17 04:43 03/02/17 04:43 03/01/17 03/02/17 03/03/17 05:59 05:59 05:59 Intake Total 3878 Output Total 3375 Balance 503 PT 21.8 SEC (12.0-15.0) H 03/01/17 13:30 INR 1.89 (0.83-1.16) H 03/01/17 13:30 - Pending Discharge Pending Discharge Within 48 Hours: Yes Pending Discharge Date: 03/04/17 Pending Discharge Time: 11:00 - Physical Exam Constitutional: no apparent distress, not in pain, chronically ill appearing, No uncomfortable Eyes: icteric sclera Cardiovascular: regular rate and rhythym, no murmur, rub, or gallop, edema ( trace bilat LE) Respiratory: no respiratory distress, no rales or rhonchi, clear to auscultation Gastrointestinal: normoactive bowel sounds, ascites, distension (moderate), No tenderness, No guarding Neurologic: AAOx3, sensation intact bilaterally, No asterixes Psychiatric: interacting appropriately, not anxious, not encephalopathic, thought process linear ICD10 Worksheet Patient Problems: Problems Problem Status Onset Spontaneous bacterial peritonitis Acute
[2017-03-03 05:13] LABS: PLATELET COUNT 385 10^3/uL (150-400)
[2017-03-03 06:30] LABS: INR 1.44 (0.83-1.16); PROTIME(PATIENT) 17.5 SEC (12.0-15.0)
[2017-03-03] MEDS ORDERED: GADOBUTROL 10 ML VIAL IVP ONE (09:09)
[2017-03-03] MEDS: FUROSEMIDE 40 MG TAB PO SCH (09:54)
[2017-03-03] MEDS: SPIRONOLACTONE 100 MG TAB PO SCH (09:54)
[2017-03-03] MEDS: cefTRIAXone 2 GM in D5W 50 ML IV SCH (09:54)
--- NOTE | 2017-03-03 16:09 | HOSPPROG ---
Hospitalist Progress Note Assessment/Plan: # HCC - no real treatment options; patient prefers hospice/comfort care # liver failure d/t HCC and HCV - oddly normal plts; synthetic dysfunction - hemorrhagic ascites - s/p paracentesis; diuresed yesterday with slight increase in SCr; hold diuretics pending BMP tomorrow; consider albert drain - variceal screening - outpatient per Dr Blood - possible HE - consider lactulose # elevated SCr - follow closely with diuretics # SBP - cont rocephin 2g daily # HCV # anemia - stable # metabolic acidosis # gout Subjective: slightly more confused; no other complaints Objective: Vital Signs Temp Pulse Resp BP Pulse Ox 37.1 C 82 18 126/76 H 93 03/03/17 12:26 03/03/17 12:26 03/03/17 12:26 03/03/17 12:26 03/03/17 12:26 Microbiology 03/01/17 17:02 Gram Stain - Final Peritoneal Fluid - Aspirate Laboratory Results 03/03/17 04:51 03/03/17 04:51 03/02/17 03/03/17 03/04/17 05:59 05:59 05:59 Intake Total 3878 2000 Output Total 3375 Balance 503 2000 PT 17.5 SEC (12.0-15.0) H 03/03/17 06:00 INR 1.44 (0.83-1.16) H 03/03/17 06:00 chart reviewed CTs reviewed - Physical Exam Constitutional: no apparent distress, appears nourished Cardiovascular: regular rate and rhythym, no murmur, rub, or gallop, systolic murmur Respiratory: no respiratory distress, no rales or rhonchi, clear to auscultation Gastrointestinal: distension, other (soft, mild TTP), No guarding, No rebound ICD10 Worksheet Patient Problems: Problems Problem Status Onset Spontaneous bacterial peritonitis Acute
--- NOTE | 2017-03-03 16:43 | SOAPPROG ---
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 2) Hepatitis C 3) Plan: 03/03/17 16:42 Objective: Vital Signs Temp Pulse Resp BP Pulse Ox 37.1 C 82 18 126/76 H 93 03/03/17 12:26 03/03/17 12:26 03/03/17 12:26 03/03/17 12:26 03/03/17 12:26 Microbiology 03/01/17 17:02 Gram Stain - Final Peritoneal Fluid - Aspirate Laboratory Results 03/03/17 04:51 03/03/17 04:51 03/02/17 03/03/17 03/04/17 05:59 05:59 05:59 Intake Total 3878 1999 Output Total 3375 Balance 503 1999 PT 17.5 SEC (12.0-15.0) H 03/03/17 06:00 INR 1.44 (0.83-1.16) H 03/03/17 06:00 ICD10 Worksheet Patient Problems: Problems Problem Status Onset Spontaneous bacterial peritonitis Acute
--- NOTE | 2017-03-03 16:56 | SOAPPROG ---
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 2) Hepatitis C 3) possible right branch portal vein thrombosis 4) microcytic anemia 5) Suspect malignant ascites 6) mild coagulopathy of liver dysfunction Plan: Patient was unable to tolerate MRI. His CT does not show pulmonary involvement. I suspect that he has malignant ascites, pathology on his peritoneal fluid is currently pending. He is not inclined to pursue aggressive therapy and is not likely a surgical candidate (if peritoneal cytology is positive, he is definitely not a surgical candidate). His small portal vein thrombosis does not require anticoagulation. Diuretic therapy has been started for his ascites. He is meeting with hospice tomorrow. We briefly discussed phase I/II data showing responses to HCC with Immunotherapy. Patient would like to follow up in our office once discharged. His questions were answered. Subjective: Unable to tolerate MRI. Denies abdominal pain. Significant other Leah at bedside. Objective: Vital Signs Temp Pulse Resp BP Pulse Ox 37.1 C 82 18 126/76 H 93 03/03/17 12:26 03/03/17 12:26 03/03/17 12:26 03/03/17 12:26 03/03/17 12:26 Microbiology 03/01/17 17:02 Gram Stain - Final Peritoneal Fluid - Aspirate Laboratory Results 03/03/17 04:51 03/03/17 04:51 03/02/17 03/03/17 03/04/17 05:59 05:59 05:59 Intake Total 3878 2000 Output Total 3375 Balance 503 2000 PT 17.5 SEC (12.0-15.0) H 03/03/17 06:00 INR 1.44 (0.83-1.16) H 03/03/17 06:00 - Time Spent With Patient Time Spent With Patient: 25 minutes Physical Exam - Physical Exam General Appearance: alert, no apparent distress EENT: other (mild icterus) Abdomen: soft, other (Mild distension) Neuro/Psych: normal mood/affect ICD10 Worksheet Patient Problems: Problems Problem Status Onset Spontaneous bacterial peritonitis Acute
--- NOTE | 2017-03-03 20:26 | SOAPPROG ---
[facility] Progress Note Assessment/Plan: Assessment:Plan: 1) HCC - AFP > 360,000, CT with multiple lesions, will ask Oncology to see although likely recommendation and pt choice will be no treatment/hospice 2) ascites - from HCC/cirrhosis - start Lasix 40mg and Aldactone 100mg, daily weights, 2 gram sodium diet 3) Hep C - mute point given his HCC 4) need for EGD - will consider EGD in near future to eval for varices prior to pt going to [place] to see his Grandchildren. If present start prophylaxis for variceal bleed. Likely as outpt in 1-2 weeks 5) SBP - IV ceftriaxone, will need intermodal dispatcher prophylaxis with PO Cipro or Bactrim DS will follow 03/02/17 15:55 03/03/17 20:23 ABOVE 1) HCC - palliative care 2) ascites - diuretics on hold as Cr went from 1.1 to 1.3, follow daily weights and labs in am. If cr goes up will ask renal to see. If diuretics seem too risky to cause hepatorenal syndrome, consider [place] drain. 3) SBP - IV ceftriaxone for 3 days then change to cipro 500 bid for total one week, then decrease cipro to once daily as prophylaxis 4) EGD - will review CT again with radiology for any evidence of varices. If no evidence of prtal HTN and given plts > 90, varices maybe unlikely and I may not perform EGD will follow Subjective: CC - HCC, ascites pt feels less distended no n/v no cp meet with palliative care today Objective: Vital Signs Temp Pulse Resp BP Pulse Ox 36.9 C 75 16 132/82 H 93 03/03/17 20:18 03/03/17 20:18 03/03/17 20:18 03/03/17 20:18 03/03/17 20:18 Microbiology 03/01/17 17:02 Gram Stain - Final Peritoneal Fluid - Aspirate Laboratory Results 03/03/17 04:51 03/03/17 04:51 03/02/17 03/03/17 03/04/17 05:59 05:59 05:59 Intake Total 3878 2000 2600 Output Total 3375 Balance 503 2000 2600 PT 17.5 SEC (12.0-15.0) H 03/03/17 06:00 INR 1.44 (0.83-1.16) H 03/03/17 06:00 A+Ox3 CTA S1S2 +BS, soft Laboratory Tests 03/01/17 03/02/17 03/03/17 13:30 04:43 04:51 Creatinine 1.1 1.3 Calcium 7.5 L 7.6 L Total Bilirubin 4.4 H 3.9 H AST > 750 H 1140 H 982 H ALT 69 64 57 Alkaline Phosphatase 146 H 130 H ICD10 Worksheet Patient Problems: Problems Problem Status Onset Spontaneous bacterial peritonitis Acute
[2017-03-04 05:50] LABS: INR 1.39 (0.83-1.16)
[2017-03-04] MEDS ORDERED: SPIRONOLACTONE 100 MG TAB PO SCH (05:55)
[2017-03-04 05:58] LABS: PLATELET COUNT 379 10^3/uL (150-400)
[2017-03-04] MEDS: SPIRONOLACTONE 50 MG TAB PO SCH (09:17)
--- NOTE | 2017-03-04 09:39 | SOAPPROG ---
[facility] Progress Note Assessment/Plan: Assessment: 1) HCC with diffuse involvement of entire Right lobe of liver. 2) Hepatitis C 3) possible right branch portal vein thrombosis 4) microcytic anemia 5) Suspect malignant ascites 6) mild coagulopathy of liver dysfunction Plan: Patient was unable to tolerate MRI. His CT does not show pulmonary involvement. I still suspect that may have malignant ascites. I spoke with Dr. Meng of pathology, his peritoneal cytology is currently negative for cancer cells. IHC studies have been ordered. He is not inclined to pursue aggressive therapy and is not likely a surgical candidate. His small portal vein thrombosis does not require anticoagulation. Diuretic therapy has been started for his ascites. This has resulted in some minor electrolyte abnormalities, which will be monitored. He is meeting with hospice today. We briefly discussed phase I/II data showing responses to HCC with Immunotherapy. Patient would like to follow up in our office once discharged. I will have the office call him to schedule an appointment. Overall care plan will be finalized in the outpatient setting once he has had time to process all of his options. His questions were answered. His partner Leah was present for the visit today. 03/04/17 09:40 Subjective: Denies pain. Plans to meet with palliative care today. Objective: Vital Signs Temp Pulse Resp BP Pulse Ox 36.7 C 73 20 163/96 H 93 03/04/17 09:00 03/04/17 09:00 03/04/17 09:00 03/04/17 09:00 03/04/17 09:00 Microbiology 03/01/17 17:02 Gram Stain - Final Peritoneal Fluid - Aspirate Laboratory Results 03/04/17 04:50 03/04/17 04:50 03/03/17 03/04/17 03/05/17 05:59 05:59 05:59 Intake Total 1999 3450 Balance 1999 3450 PT 17.0 SEC (12.0-15.0) H 03/04/17 04:50 INR 1.39 (0.83-1.16) H 03/04/17 04:50 - Time Spent With Patient Time Spent With Patient: 15 minutes Physical Exam - Physical Exam General Appearance: alert, no apparent distress EENT: other (mild icterus) Abdomen: other (mild distension) Neuro/Psych: alert, normal mood/affect ICD10 Worksheet Patient Problems: Problems Problem Status Onset Spontaneous bacterial peritonitis Acute
--- NOTE | 2017-03-04 10:02 | SOAPPROG ---
[facility] Progress Note Assessment/Plan: Assessment:Plan: 03/02/17 15:55 03/03/17 20:23 ABOVE 1) HCC - palliative care 2) ascites - diuretics on hold as Cr went from 1.1 to 1.3, follow daily weights and labs in am. If cr goes up will ask renal to see. If diuretics seem too risky to cause hepatorenal syndrome, consider [place] drain. 3) SBP - IV ceftriaxone for 3 days then change to cipro 500 bid for total one week, then decrease cipro to once daily as prophylaxis 4) EGD - will review CT again with radiology for any evidence of varices. If no evidence of prtal HTN and given plts > 90, varices maybe unlikely and I may not perform EGD will follow 03/04/17 09:59 ABOVE: 1) HCC -palliative care 2) SBP - abx, can alter according to renal function and renal consult, abx as above, then prophyaxis 3) Ascites - diuretics on hold, will ask renal to consult 4) Renal - cr back up with diuretics and sodium down - renal consult - I called and she will be around in afternoon 5) Varices - suggestion of varices on CT scan - will arrange EGD -- can be as outpt as well, non-urgent. will follow Subjective: CC- HCC, ascites, hyponatremia pt feeling OK, no abdo pain, feels more distended no f/c/s Objective: Vital Signs Temp Pulse Resp BP Pulse Ox 36.7 C 73 20 163/96 H 93 03/04/17 09:00 03/04/17 09:00 03/04/17 09:00 03/04/17 09:00 03/04/17 09:00 Microbiology 03/01/17 17:02 Gram Stain - Final Peritoneal Fluid - Aspirate Laboratory Results 03/04/17 04:50 03/04/17 04:50 03/03/17 03/04/17 03/05/17 05:59 05:59 05:59 Intake Total 1999 3450 Balance 1999 3450 PT 17.0 SEC (12.0-15.0) H 03/04/17 04:50 INR 1.39 (0.83-1.16) H 03/04/17 04:50 A+Ox3 CTA S1S2 +BS, soft distended, tender Laboratory Tests 03/01/17 03/02/17 03/03/17 13:30 04:43 04:51 BUN 22 18 16 Creatinine 1.4 H 1.1 1.3 03/04/17 04:50 BUN 14 Creatinine 1.2 ICD10 Worksheet Patient Problems: Problems Problem Status Onset Spontaneous bacterial peritonitis Acute
[2017-03-04] MEDS: SIMETHICONE 80 MG TAB CHEW PO PRN (10:36)
[2017-03-04] MEDS: cefTRIAXone 2 GM in D5W 50 ML IV SCH (10:36)
--- NOTE | 2017-03-04 11:07 | HOSPPROG ---
Hospitalist Progress Note Assessment/Plan: # HCC - onc confirming no real treatment options; cytology from ascites pending , but initial report no malig cells; - patient prefers hospice/comfort care; # liver failure d/t HCC and HCV - oddly normal plts; synthetic dysfunction - hemorrhagic ascites - s/p paracentesis; may be very difficult to diurese - may need drain - variceal screening - per Dr Blood # hypoNa - in setting of ascites and diuresis; renal consult # elevated SCr - better today # SBP - cont rocephin 2g daily # HCV # anemia - stable # metabolic acidosis # gout Subjective: abd feels softer; had a BM Objective: Vital Signs Temp Pulse Resp BP Pulse Ox 36.7 C 73 20 163/96 H 93 03/04/17 09:00 03/04/17 09:00 03/04/17 09:00 03/04/17 09:00 03/04/17 09:00 Microbiology 03/01/17 17:02 Gram Stain - Final Peritoneal Fluid - Aspirate Laboratory Results 03/04/17 04:50 03/04/17 04:50 03/03/17 03/04/17 03/05/17 05:59 05:59 05:59 Intake Total 1999 3450 Balance 1999 3450 PT 17.0 SEC (12.0-15.0) H 03/04/17 04:50 INR 1.39 (0.83-1.16) H 03/04/17 04:50 - Time Spent With Patient Time Spent with Patient: greater than 25 minutes Time Spent with Patient: Greater than 25 minutes spent on this patients care, greater than 50% of time spent counseling, educating, and coordinating care regarding the above mentioned plan. - Physical Exam Constitutional: no apparent distress, appears nourished Gastrointestinal: soft, non-tender abdomen, distension (mild) ICD10 Worksheet Patient Problems: Problems Problem Status Onset Spontaneous bacterial peritonitis Acute
--- NOTE | 2017-03-04 13:52 | PDCONSULT ---
Registered Nurse Bone Marrow Transplant Note: - Chief Complaint Abdominal distension - History of Present Illness 62-year-old male with PMH of Hep C diagnosed 10 years ago presented with abdominal pain and distension as well as fever >101 and jaundice found to have HCC of the liver with malignant ascites. The patient is s/p paracentesis on Wednesday, however again having the same symptoms as well as hyponatremia and possible BERNY. He states that he hasn't felt well for nearly 1 month with fatigue , bloating, and poor appetite, which worsened over the last week. He is a lifelong smoker and drinks alcohol and recently quit because he wasn't feeling well. Never goes to doctors and was not treated for Hep C due to financial issues and loss of insurance several years ago. He admits to having some issues with urination since admission to the hospital and may have had some dark urines. POA at bedside. Wants to go to [place] to see daughters if possible. History Information - Allergies/Home Medication List Allergies/Adverse Reactions: Ibuprofen Allergy (Verified 03/01/17 13:08) Home Medications: None - Past Medical History Additional medical history: Hepatitis C virus diagnosis years ago, with evaluation by Dr. Hany Reyes in 2009. Gout, currently on a supplement over-the- counter - Surgical History No surgical history - Family History No h/o liver or renal disease, not sure how parents - Social History Smoking Status: Former smoker (Quit 2 weeks ago) Alcohol Use: Sober (Previous heavy use, quit 2 weeks ago) Drug Use: None (No IV drug use) Additional social history: Normally independent in his ADLs Review of Systems Review of Systems: 10pt was reviewed & negative except for what was stated in HPI & below Constitutional: Reports: fever, weakness, weight loss Physical Exam: Temp Pulse Resp BP Pulse Ox 36.7 C 72 16 135/85 H 93 03/04/17 12:38 03/04/17 12:38 03/04/17 12:38 03/04/17 12:38 03/04/17 09:00 Gen: A+Ox3, NAD HEENT: Mild jaundice, MMM Neck: No lymphadenopathy CV: RRR, no murmurs or rub Lungs Decreased breath sounds with mild expiratory wheeze Abd: Distended, no fluid movement, hypoactive bowel sounds, NT Ext: No edema Labs: WBC 7.95 10^3/uL (3.80-9.50) 10/26/17 04:50 RBC 3.40 10^6/uL (4.40-6.38) L 03/04/17 04:50 Hgb 9.0 g/dL (13.7-17.5) L 03/04/17 04:50 Hct 24.7 % (40.0-51.0) L 03/04/17 04:50 MCV 72.6 fL (81.5-99.8) L 03/04/17 04:50 MCH 26.5 pg (27.9-34.1) L 03/04/17 04:50 MCHC 36.4 g/dL (32.4-36.7) 03/04/17 04:50 RDW 26.3 % (11.5-15.2) H 03/04/17 04:50 Plt Count 379 10^3/uL (150-400) 03/04/17 04:50 MPV 10.2 fL (8.7-11.7) 03/04/17 04:50 Neut % (Auto) 68.1 % (39.3-74.2) 03/04/17 04:50 Lymph % (Auto) 20.1 % (15.0-45.0) 03/04/17 04:50 [place] % (Auto) 8.2 % (4.5-13.0) 03/04/17 04:50 Eos % (Auto) 1.1 % (0.6-7.6) 03/04/17 04:50 Baso % (Auto) 0.9 % (0.3-1.7) 03/04/17 04:50 Nucleat RBC Rel Count 0.0 % (0.0-0.2) 03/04/17 04:50 Absolute Neuts (auto) 5.41 10^3/uL (1.70-6.50) 03/04/17 04:50 Absolute Lymphs (auto) 1.60 10^3/uL (1.00-3.00) 03/04/17 04:50 Absolute Monos (auto) 0.65 10^3/uL (0.30-0.80) 03/04/17 04:50 Absolute Eos (auto) 0.09 10^3/uL (0.03-0.40) 03/04/17 04:50 Absolute Basos (auto) 0.07 10^3/uL (0.02-0.10) 03/04/17 04:50 Absolute Nucleated RBC 0.00 10^3/uL (0-0.01) 03/04/17 04:50 Immature Gran % 1.6 % (0.0-1.1) H 03/04/17 04:50 Immature Gran # 0.13 10^3/uL (0.00-0.10) H 03/04/17 04:50 Platelet Estimate ADEQUATE (ADEQ) 03/04/17 04:50 Polychromasia 1+ H 03/04/17 04:50 Hypochromasia 1+ H 03/04/17 04:50 Microcytic Cells 2+ H 03/04/17 04:50 Target Cells 2+ H 03/04/17 04:50 Tear Drop Cells 1+ H 03/01/17 21:55 Oval Macrocytes 1+ H 03/04/17 04:50 Echinocytes 1+ H 03/04/17 04:50 Keratocytes 1+ H 03/02/17 04:43 Schistocytes 2+ H 03/04/17 04:50 Smear Review By Moi MARCIAL MD 03/04/17 04:50 PT 17.0 SEC (12.0-15.0) H 03/04/17 04:50 INR 1.39 (0.83-1.16) H 03/04/17 04:50 APTT 29.9 SEC (23.0-38.0) 03/01/17 13:30 VBG Lactic Acid 3.5 mmol/L (0.7-2.1) H 03/01/17 21:55 Sodium 127 mEq/L (134-144) L 03/04/17 04:50 Potassium 3.7 mEq/L (3.5-5.2) 03/04/17 04:50 [place] 99 mEq/L (97-110) 03/04/17 04:50 Carbon Dioxide 18 mEq/l (22-31) L 03/04/17 04:50 Anion Gap 10 mEq/L (8-16) 03/04/17 04:50 BUN 14 mg/dL (7-23) 03/04/17 04:50 Creatinine 1.2 mg/dL (0.7-1.3) 03/04/17 04:50 Estimated GFR > 60 03/04/17 04:50 Glucose 107 mg/dL (70-100) H 03/04/17 04:50 Calcium 7.3 mg/dL (8.5-10.4) L 03/04/17 04:50 Total Bilirubin 2.9 mg/dL (0.1-1.4) H 03/04/17 04:50 Conjugated Bilirubin 2.2 mg/dL (0.0-0.5) H 03/04/17 04:50 Unconjugated Bilirubin 0.7 mg/dL (0.0-1.1) 03/04/17 04:50 AST 955 IU/L (17-59) H 03/04/17 04:50 ALT 61 IU/L (21-72) 03/04/17 04:50 Alkaline Phosphatase 182 IU/L (38-126) H 03/04/17 04:50 Total Protein 7.5 g/dL (6.3-8.2) 03/04/17 04:50 Albumin 2.4 g/dL (3.5-5.0) L 03/04/17 04:50 Lipase 213 IU/L (23-300) 03/01/17 13:30 Tumor Marker AFP 690652.00 ng/mL (0.00-7.51) H 03/01/17 13:30 Urine Color DM 03/01/17 14:10 Urine Appearance CLEAR 03/01/17 14:10 Urine pH 5.0 (5.0-7.5) 03/01/17 14:10 Ur Specific Joseph 1.023 (1.002-1.030) 03/01/17 14:10 Urine Protein NEGATIVE (NEGATIVE) 03/01/17 14:10 Urine Ketones TRACE (NEGATIVE) H 03/01/17 14:10 Urine Blood NEGATIVE (NEGATIVE) 03/01/17 14:10 Urine Nitrate NEGATIVE (NEGATIVE) 03/01/17 14:10 Urine Bilirubin POSITIVE (NEGATIVE) H 03/01/17 14:10 Urine Urobilinogen 4.0 EU (0.2-1.0) H 03/01/17 14:10 Ur Leukocyte Esterase NEGATIVE (NEGATIVE) 03/01/17 14:10 Urine Glucose NEGATIVE (NEGATIVE) 03/01/17 14:10 Fluid Meso/Macro/[place] % 41 % (70-100) L 03/01/17 17:02 Fl Pathologist Review Moi MARCIAL MD 03/01/17 17:02 Fluid Glucose Cancelled 03/01/17 17:02 Fluid Total Protein Cancelled 03/01/17 17:02 Fluid Albumin Cancelled 03/01/17 17:02 Peritoneal Source PERITONEAL 03/01/17 17:02 Peritoneal Color RED (CLS/PALE YL) H 03/01/17 17:02 Peritoneal Appearance CLOUDY (CLEAR) H 03/01/17 17:02 Peritoneal WBC 1811 /mm3 (0-0) H 03/01/17 17:02 Peritoneal RBC 993005 /mm3 (0-0) H 03/01/17 17:02 Periton Neutrophils 30 % (0-7) H 03/01/17 17:02 Periton Lymphocytes % 29 % (0-18) H 03/01/17 17:02 Peritoneal Tot Protein 2.3 g/dL 03/01/17 17:02 Peritoneal Albumin < 1.0 g/dL 03/01/17 17:02 Peritoneal Glucose 72 mg/dL (55-113) 03/01/17 17:02 Cytology RECEIVED 03/01/17 17:02 Imaging: Reviewed A/P: The patient is a 62 y/o M with a known h/o Hep C found to have new onset ascites and jaundice 2/2 to hepatocellular carcinoma now with BERNY and hyponatremia. Urinalysis is negative for blood or urine and Cr has improved from 1.4>1.2 with diuretics and paracentesis. BERNY: -unknown baseline Cr -consider renal US with PVR and [place] if patient continues to c/o urinary retention -bland urine and most likely HRS physiology, however high pressures -await culture from abdomen -continue aldactone 50mg po daily -would consider restarting lasix 20mg po BID unless placing [place] Drain Hyponatremia -most likely hypervolemic 2/2 to malignant ascites -will send urine studies -fluid restriction to 1.5L daily -diuresis as above HTN -BP's elevated today, may consider low dose beta-yelena such if needed -may also use hydralazine prn HCC with malignant ascites -GI following, appreciated -would use albumin 10g/1L if LVP scheduled again AGMA -unclear etiology and may be compensatory for respiratory alkalosis often associated with liver disease -obtain VBG and lactate -consider bicarb supplement 1300mg po BID for goal >20 Thank you for this consult, will continue to follow. Please contact if ?s, .
--- NOTE | 2017-03-04 15:16 | ASMTCMCOM ---
CM Note CM Note Notes: TamannaRN from [facility] met with pt and friend Benson today to discuss hospice. Pt and benson are interested in signing on with [facility] [place]. They will need a hospice order. Pt would like to visit his children and grandchildren in [place] within a week after [place]. Pt may get a drain placed and he and Benson were wondering if their is a hospice that can help pt manage his drain in [place] while they are visiting. Spoke with Adelina at [facility] and she stated that once pt is admitted into [facility] at [place], they will assist with finising a hospice in [place] while he is there and also make sure he has the correct adv. directives paperwork for [place]. Will submit pt's name for [facility]. C/M to follow. Date Signed: 03/04/2017 03:15 PM Electronically Signed By:Stephanie Delgado LCSW
--- NOTE | 2017-03-04 15:16 | ASMTCMCOM ---
CM Note CM Note Notes: TamannaRN from [facility] met with pt and friend Benson today to discuss hospice. Pt and benson are interested in signing on with [facility] at [place]. They will need a hospice order. Pt would like to visit his children and grandchildren in [place] within a week after [place]. Pt may get a drain placed and he and Benson were wondering if their is a hospice that can help pt manage his drain in [place] while they are visiting. Spoke with Adelina at [facility] and she stated that once pt is admitted into [facility] at [place], they will assist with finising a hospice in [place] while he is there and also make sure he has the correct adv. directives paperwork for [place]. Will submit pt's name for [facility]. C/M to follow. Date Signed: 03/04/2017 03:15 PM Electronically Signed By:Stephanie Delgado LCSW
--- NOTE | 2017-03-04 15:16 | ASMTCMCOM ---
CM Note CM Note Notes: TamannaRN from [facility] met with pt and friend Benson today to discuss hospice. Pt and benson are interested in signing on with [facility] at [place]. They will need a hospice order. Pt would like to visit his children and grandchildren in [place] within a week after [place]. Pt may get a drain placed and he and Benson were wondering if their is a hospice that can help pt manage his drain in [place] while they are visiting. Spoke with Adelina at [facility] and she stated that once pt is admitted into [facility] at [place], they will assist with finising a hospice in [place] while he is there and also make sure he has the correct adv. directives paperwork for [place]. Will submit pt's name for [facility]. C/M to follow. Date Signed: 03/04/2017 03:15 PM Electronically Signed By:Stephanie Delgado LCSW
[2017-03-04] MEDS: FUROSEMIDE 20 MG TAB PO SCH (15:54)
[2017-03-05] MEDS: SIMETHICONE 80 MG TAB CHEW PO PRN ×2 (02:19→09:14)
[2017-03-05] MEDS: cefTRIAXone 2 GM in D5W 50 ML IV SCH (08:43)
[2017-03-05] MEDS: SPIRONOLACTONE 50 MG TAB PO SCH (08:43)
[2017-03-05] MEDS: FUROSEMIDE 20 MG TAB PO SCH ×2 (08:43→15:00)
--- NOTE | 2017-03-05 08:57 | SOAPPROG ---
SOAP Progress Note Assessment/Plan: A/P: The patient is a 62 y/o M with a known h/o Hep C found to have new onset ascites and jaundice 2/2 to hepatocellular carcinoma now with BERNY and hyponatremia. Urinalysis is negative for blood or urine and Cr has improved from 1.4>1.2 with diuretics and paracentesis. BERNY: -unknown baseline Cr, now back to 1.0 -renal US shows normal size kidneys with normal cortex, small angiomyolipoma, negative PVR and no hydro -bland urine and most likely HRS physiology, however high pressures -continue aldactone 50mg po daily -continue lasix 20mg po BID Hyponatremia -urine studies show hypo-osmolar, Esther<5, elevated Uosm consistent with hypervolemic 2/2 to malignant ascites -improved to 130 today -fluid restriction to 1.5L daily -diuresis as above -monitor accurate I/O's HTN -BP's elevated, may consider low dose beta-yelena such if needed -may also use hydralazine prn HCC with malignant ascites -GI following, appreciated -would use albumin 10g/1L if LVP scheduled again -considering [place] drain AGMA -VBG reveals possible respiratory alkalosis 2/2 to liver disease as well as elevated lactate with appropriate metabolic compensation -would avoid supplemental bicarb for now and monitor Thank you for this consult, will sign off. Please contact if ?s, [phone]. 03/05/17 08:55 03/05/17 09:01 03/05/17 09:03 Subjective: Patient feeling well this AM. Thinks he is urinating more. Approx 500cc documented. Objective: Vital Signs Temp Pulse Resp BP Pulse Ox 36.4 C 83 20 145/97 H 93 03/05/17 08:24 03/05/17 08:24 03/05/17 08:24 03/05/17 08:24 03/05/17 08:24 Microbiology 03/01/17 17:02 Gram Stain - Final Peritoneal Fluid - Aspirate Laboratory Results 03/04/17 04:50 03/05/17 05:10 03/04/17 03/05/17 03/06/17 05:59 05:59 05:59 Intake Total 3450 1800 Balance 3450 1800 PT 17.0 SEC (12.0-15.0) H 03/04/17 04:50 INR 1.39 (0.83-1.16) H 03/04/17 04:50 ICD10 Worksheet Patient Problems: Problems Problem Status Onset Spontaneous bacterial peritonitis Acute
--- NOTE | 2017-03-05 09:58 | HOSPPROG ---
Hospitalist Progress Note Assessment/Plan: # HCC - onc confirming no real treatment options; cytology from ascites pending , but initial report no malig cells - patient prefers hospice/comfort care - will go with hospice on dc # liver failure d/t HCC and HCV - oddly normal plts; synthetic dysfunction - hemorrhagic ascites - s/p paracentesis; seems stable on diuretics - may not need drain; cont lasix 20 bid, aldactone 50 - variceal screening - per Dr Blood; possibly as inpatient # hypoNa - better today # elevated SCr - now 1.0 - cont diuretics per renal # SBP - cont rocephin 2g daily D#08/12; will need ppx after # HCV # anemia - stable # metabolic acidosis # gout # dispo - will be to hospice at home; wants to see his daughters in [place]; would like to follow lytes and ascites one more day prior to dc; also pending is plan for EGD/variceal screening Subjective: ate well; seen by renal Objective: Vital Signs Temp Pulse Resp BP Pulse Ox 36.4 C 83 20 145/97 H 93 03/05/17 08:24 03/05/17 08:24 03/05/17 08:24 03/05/17 08:24 03/05/17 08:24 Microbiology 03/01/17 17:02 Gram Stain - Final Peritoneal Fluid - Aspirate Laboratory Results 03/04/17 04:50 03/05/17 05:10 03/04/17 03/05/17 03/06/17 05:59 05:59 05:59 Intake Total 3450 1800 Balance 3450 1800 PT 17.0 SEC (12.0-15.0) H 03/04/17 04:50 INR 1.39 (0.83-1.16) H 03/04/17 04:50 US reviewed chart/renal note reviewed - Physical Exam Constitutional: no apparent distress, appears nourished Cardiovascular: regular rate and rhythym, no murmur, rub, or gallop Respiratory: no respiratory distress, no rales or rhonchi, clear to auscultation Gastrointestinal: normoactive bowel sounds, other (soft, very mild distension; enlarged liver) ICD10 Worksheet Patient Problems: Problems Problem Status Onset Spontaneous bacterial peritonitis Acute
--- NOTE | 2017-03-05 14:15 | ASMTCMCOM ---
CM Note CM Note Notes: Current plan is for pt to DC on Wednesday. Pt would like hospice to start at DC. Faxed [facility] order and alerted them to DC plan. Pt given 3 $100 gift cards from the [email or web address]. C/M to follow. Date Signed: 03/05/2017 02:14 PM Electronically Signed By:Stephanie Delgado LCSW
--- NOTE | 2017-03-05 14:15 | ASMTCMCOM ---
CM Note CM Note Notes: Current plan is for pt to DC on Wednesday. Pt would like hospice to start at DC. Faxed [facility] order and alerted them to DC plan. Pt given 3 $100 gift cards from the [employer]. C/M to follow. Date Signed: 03/05/2017 02:14 PM Electronically Signed By:Stephanie Delgado LCSW
--- NOTE | 2017-03-05 14:15 | ASMTCMCOM ---
CM Note CM Note Notes: Current plan is for pt to DC on Wednesday. Pt would like hospice to start at DC. Faxed [facility] order and alerted them to DC plan. Pt given 3 $100 gift cards from the [employer]. C/M to follow. Date Signed: 03/05/2017 02:14 PM Electronically Signed By:Stephanie Delgado LCSW
--- NOTE | 2017-03-05 18:13 | SOAPPROG ---
SCOT Progress Note Assessment/Plan: Assessment:Plan: 03/04/2017 1) HCC -palliative care 2) SBP - abx, can alter according to renal function and renal consult, abx as above, then prophyaxis 3) Ascites - diuretics on hold, will ask renal to consult 4) Renal - cr back up with diuretics and sodium down - renal consult - I called and she will be around in afternoon 5) Varices - suggestion of varices on CT scan - will arrange EGD -- can be as outpt as well, non-urgent. will follow 03/05/17 18:10 ABOVE: 1) HCC - palliative care 2) SBP - ABX on Ceftriaxone at present, can be cipro 500 mg po BID to complete one week of ABX, then decrease to once daily lifelong as prophylaxis against SBP 3) renal - thank you for the consult, on lower dose diuretics (Aldactone 50mg daily Lasix 20mg BID with Cr in ok range and sodium back up to 130 and his weight decreased 0.6 kg 4) Ascites - Lasix 20 bid Aldactone 50 daily, daily weights, 2 gram sodium diet 5) varices - suggestion on CT - prob will get EGD as outpt Dr. Coates will be taking over inpt service at 5pm today 03/05/17 18:17 Subjective: CC- HCC, ascites he feels OK, deciding about dinner food very realistic about this disease Objective: Vital Signs Temp Pulse Resp BP Pulse Ox 36.7 C 79 16 146/95 H 96 03/05/17 15:17 03/05/17 15:17 03/05/17 15:17 03/05/17 15:17 03/05/17 15:17 Microbiology 03/01/17 17:02 Gram Stain - Final Peritoneal Fluid - Aspirate Laboratory Results 03/04/17 04:50 03/05/17 05:10 03/04/17 03/05/17 03/06/17 05:59 05:59 05:59 Intake Total 3450 1800 300 Output Total 200 Balance 3450 1800 100 PT 17.0 SEC (12.0-15.0) H 03/04/17 04:50 INR 1.39 (0.83-1.16) H 03/04/17 04:50 A+OX3 no asterixis CTA S1S2 +BS, sift distended no r/g weight 80.3 to 82.7 to 82.1 this am Laboratory Tests 03/01/17 03/02/17 03/03/17 13:30 04:43 04:51 Creatinine 1.4 H 1.1 1.3 03/04/17 03/05/17 04:50 05:10 Creatinine 1.2 1.0 ICD10 Worksheet Patient Problems: Problems Problem Status Onset Spontaneous bacterial peritonitis Acute
[2017-03-06] MEDS: SIMETHICONE 80 MG TAB CHEW PO PRN ×2 (03:26→19:54)
[2017-03-06 05:16] LABS: PLATELET COUNT 423 10^3/uL (150-400)
[2017-03-06] MEDS: FUROSEMIDE 20 MG TAB PO SCH ×2 (09:01→15:30)
[2017-03-06] MEDS: SPIRONOLACTONE 50 MG TAB PO SCH (09:02)
[2017-03-06] MEDS: cefTRIAXone 2 GM in D5W 50 ML IV SCH (10:01)
--- NOTE | 2017-03-06 11:47 | SOAPPROG ---
SOAP Progress Note Assessment/Plan: Assessment: 1. HCC; metastatic. 2. Malignant ascites. 3. Portal HTN with probable esophageal varices without bleeding. 4. Hyponatremia, improved. 5. BERNY/AGMA. Plan: 1. Patient not sure he wants a [place] shunt. 2. Renal management per Hospitalist and Senior Agricultural Assistant. 3. Will follow with you. Flaco Coates MD 03/06/17 11:50 Subjective: CC: HCC/Ascites. Interval HPI: Patient without abdominal complaints. Appetite OK. Expressed reluctance to get [place] shunt, hoping that it is not needed. Objective: Vital Signs Temp Pulse Resp BP Pulse Ox 36.8 C 84 17 150/103 H 93 03/06/17 08:40 03/06/17 08:40 03/06/17 08:40 03/06/17 08:40 03/06/17 08:40 Microbiology 03/01/17 17:02 Gram Stain - Final Peritoneal Fluid - Aspirate Laboratory Results 03/06/17 04:53 03/06/17 04:53 03/05/17 03/06/17 03/07/17 05:59 05:59 05:59 Intake Total 1800 300 Output Total 200 250 Balance 1800 100 -250 PT 17.0 SEC (12.0-15.0) H 03/04/17 04:50 INR 1.39 (0.83-1.16) H 03/04/17 04:50 Laboratory Tests 03/06/17 04:53 Sodium 132 L Potassium 3.9 Chloride 101 Carbon Dioxide 21 L Anion Gap 10 BUN 11 Creatinine 1.0 Physical Exam - Physical Exam General Appearance: alert, no apparent distress Respiratory: lungs clear, normal breath sounds Cardiac/Chest: regular rate, rhythm, edema (trace pedal) Abdomen: non-tender, soft, ascites Skin: normal color, warm/dry Extremities: normal range of motion Neuro/Psych: alert, normal mood/affect, oriented x 3 ICD10 Worksheet Patient Problems: Problems Problem Status Onset Spontaneous bacterial peritonitis Acute
--- NOTE | 2017-03-06 14:43 | HOSPPROG ---
Hospitalist Progress Note Assessment/Plan: # HCC - diffuse involvement of right hepatic lobe, possible malignant ascites - palliative care - he currently refuses chemo - recommend follow-up oncology as outpatient to solidify plan - plans to enroll in hospice after he returns from [place] to visit with his daughters # liver failure d/t HCC and HCV - oddly normal plts; synthetic dysfunction - hemorrhagic ascites - s/p paracentesis; seems stable on diuretics - may not need drain; cont lasix 20 bid, aldactone 50 - variceal screening - per GI can be done outpatient # hypoNa - better today # elevated SCr - now 1.0 - cont diuretics per renal # SBP - cont rocephin 2g daily D#09/11; will need ppx after # Portal vein thrombosis - no anticoagulation indicated (likely chronic) # HCV # anemia - stable # metabolic acidosis # gout Subjective: No complaints. Objective: Vital Signs Temp Pulse Resp BP Pulse Ox 36.8 C 84 17 150/103 H 93 03/06/17 08:40 03/06/17 08:40 03/06/17 08:40 03/06/17 08:40 03/06/17 08:40 Microbiology 03/01/17 17:02 Gram Stain - Final Peritoneal Fluid - Aspirate Laboratory Results 03/06/17 04:53 03/06/17 04:53 03/05/17 03/06/17 03/07/17 05:59 05:59 05:59 Intake Total 1800 300 Output Total 200 250 Balance 1800 100 -250 PT 17.0 SEC (12.0-15.0) H 03/04/17 04:50 INR 1.39 (0.83-1.16) H 03/04/17 04:50 - Physical Exam Constitutional: no apparent distress, appears nourished, not in pain Cardiovascular: regular rate and rhythym, no murmur, rub, or gallop Respiratory: no respiratory distress, no rales or rhonchi, clear to auscultation Gastrointestinal: normoactive bowel sounds, soft, non-tender abdomen, no palpable masses Skin: no rashes or abrasions, no fluctuance, no induration Neurologic: AAOx3, sensation intact bilaterally Psychiatric: interacting appropriately, not anxious, not encephalopathic, thought process linear ICD10 Worksheet Patient Problems: Problems Problem Status Onset Spontaneous bacterial peritonitis Acute
[2017-03-07] MEDS: SIMETHICONE 80 MG TAB CHEW PO PRN ×3 (05:20→18:10)
[2017-03-07 05:24] LABS: PLATELET COUNT 408 10^3/uL (150-400)
[2017-03-07] MEDS: cefTRIAXone 2 GM in D5W 50 ML IV SCH (08:30)
[2017-03-07] MEDS: SPIRONOLACTONE 50 MG TAB PO SCH (08:30)
[2017-03-07] MEDS: FUROSEMIDE 20 MG TAB PO SCH ×2 (08:30→15:21)
--- NOTE | 2017-03-07 10:01 | SOAPPROG ---
SOAP Progress Note Assessment/Plan: Assessment: 1. HCC; metastatic. 2. Malignant ascites. 3. Portal HTN. 4. Hyponatremia, improved. 5. BERNY/AGMA. Plan: 1. Patient declined [place] shunt and EGD as outpatient. He has decided to start Hospice care, go home tomorrow and get his personal issues in order and fly to [place] to spend time with family. 2. Paracentesis tomorrow prior to D/C. 3. Will follow with you. 20 minutes was spend in counseling and education with patient and significant other today. Flaco Coates MD 03/07/17 09:57 Subjective: cc: HCC/ascites. Interval HPI: Patient feeling well today without abdominal pain. Spent 20 minutes with patient and significant other discussing treatment plan and his wishes to have Hospice and no futher interventions except a peritoneal tap prior to discharge. Objective: Vital Signs Temp Pulse Resp BP Pulse Ox 36.6 C 76 16 134/85 H 91 L 03/07/17 08:59 03/07/17 08:59 03/07/17 08:59 03/07/17 08:59 03/07/17 08:59 Microbiology 03/01/17 17:02 Gram Stain - Final Peritoneal Fluid - Aspirate Laboratory Results 03/07/17 05:11 03/07/17 05:11 03/06/17 03/07/17 03/08/17 05:59 05:59 05:59 Intake Total 300 1950 Output Total 200 252 Balance 100 1698 PT 17.0 SEC (12.0-15.0) H 03/04/17 04:50 INR 1.39 (0.83-1.16) H 03/04/17 04:50 Physical Exam - Physical Exam General Appearance: alert, no apparent distress Respiratory: lungs clear Cardiac/Chest: regular rate, rhythm Abdomen: non-tender, distended Neuro/Psych: alert, normal mood/affect, oriented x 3 ICD10 Worksheet Patient Problems: Problems Problem Status Onset Spontaneous bacterial peritonitis Acute
[2017-03-07] MEDS ORDERED: POLYETHYLENE GLYCOL 3350 17 GM PKT PO PRN (12:14)
[2017-03-07] MEDS ORDERED: BISACODYL 10 MG SUPP PR PRN (12:14)
[2017-03-07] MEDS ORDERED: LACTULOSE 20 GM/30 ML UDCUP PO PRN (12:14)
[2017-03-07] MEDS ORDERED: MAGNESIUM HYDROXIDE 30 ML UDCUP PO PRN (12:14)
--- NOTE | 2017-03-07 15:15 | HOSPPROG ---
Hospitalist Progress Note Assessment/Plan: * Hepatocellular carcinoma - diffuse involvement right hepatic lobe -AFP 363,000 - diagnostic of HCC without biopsy needed -patient declines chemo - on palliative care - not yet ready for hospice -outpatient oncology follow-up recommended by Dr. Dee to fully discuss options * Malignant ascites (cytology negative, but presumed given hemorrhagic nature) -consider repeat paracentesis before discharge for comfort -continue lasix + aldactone * Possible esophageal varices -d/w Dr. Coates - EGD with possible banding in am * SBP -s/p 7 days IV ceftriaxone * Portal vein thrombosis - no anticoagulation indicated (likely chronic) * Hep C * Elevated lactate - likely due to hepatic dysfunction -recheck in am * Hyponatremia -fluid restrict Subjective: abd distended, otherwise no complaints. Objective: Vital Signs Temp Pulse Resp BP Pulse Ox 36.6 C 76 16 134/85 H 91 L 03/07/17 08:59 03/07/17 08:59 03/07/17 08:59 03/07/17 08:59 03/07/17 08:59 Microbiology 03/01/17 17:02 Gram Stain - Final Peritoneal Fluid - Aspirate Laboratory Results 03/07/17 05:11 03/07/17 05:11 03/06/17 03/07/17 03/08/17 05:59 05:59 05:59 Intake Total 300 1950 Output Total 200 252 400 Balance 100 1698 -400 PT 17.0 SEC (12.0-15.0) H 03/04/17 04:50 INR 1.39 (0.83-1.16) H 03/04/17 04:50 CT abd/pelvis and chest reviewed - liver mass, small ascites - Physical Exam Constitutional: no apparent distress, appears nourished, not in pain Cardiovascular: regular rate and rhythym, no murmur, rub, or gallop Respiratory: no respiratory distress, no rales or rhonchi, clear to auscultation Gastrointestinal: normoactive bowel sounds, soft, non-tender abdomen, no palpable masses, ascites, distension Skin: no rashes or abrasions, no fluctuance, no induration Neurologic: AAOx3, sensation intact bilaterally Psychiatric: interacting appropriately, not anxious, not encephalopathic, thought process linear ICD10 Worksheet Patient Problems: Problems Problem Status Onset Spontaneous bacterial peritonitis Acute
--- NOTE | 2017-03-07 15:33 | ASMTCMCOM ---
CM Note CM Note Notes: Chart reviewed. Spoke to his nurse Hemalatha.Met with patient and his ex partner Kaelyn. Patient has elected to decline hospice care at present time and wishes to proceed with palliative care. Consult ordered, message left at [phone] for palliative Care Team. Call to [facility] and spoke with Angela and she will cancel the afternoon appointment previously set up. Pateint would like to proceed with endoscopy as inpatient if possible. Current plan is to delay discharge, when he leaves he and his ex partner Kaelyn plan on going to he [facility] and from there travel to [place] so the patient may see his two daughters and grandchild prior to entering a hospice situation. CM to follow. Date Signed: 03/07/2017 03:32 PM Electronically Signed By:Zaira Castro RN
--- NOTE | 2017-03-07 15:33 | ASMTCMCOM ---
CM Note CM Note Notes: Chart reviewed. Spoke to his nurse Hemalatha.Met with patient and his ex partner Kaelyn. Patient has elected to decline hospice care at present time and wishes to proceed with palliative care. Consult ordered, message left at [phone] for palliative Care Team. Call to [facility] and spoke with Angela and she will cancel the afternoon appointment previously set up. Pateint would like to proceed with endoscopy as inpatient if possible. Current plan is to delay discharge, when he leaves he and his ex partner Kaelyn plan on going to he [facility] and from there travel to [place] so the patient may see his two daughters and grandchild prior to entering a hospice situation. CM to follow. Date Signed: 03/07/2017 03:32 PM Electronically Signed By:Zaira Castro RN
--- NOTE | 2017-03-07 15:33 | ASMTCMCOM ---
CM Note CM Note Notes: Chart reviewed. Spoke to his nurse Hemalatha.Met with patient and his ex partner Kaelyn. Patient has elected to decline hospice care at present time and wishes to proceed with palliative care. Consult ordered, message left at [phone] for palliative Care Team. Call to [facility] and spoke with Angela and she will cancel the afternoon appointment previously set up. Pateint would like to proceed with endoscopy as inpatient if possible. Current plan is to delay discharge, when he leaves he and his ex partner Kaelyn plan on going to he [facility] and from there travel to [place] so the patient may see his two daughters and grandchild prior to entering a hospice situation. CM to follow. Date Signed: 03/07/2017 03:32 PM Electronically Signed By:Zaira Castro RN
[2017-03-07] MEDS: SENNOSIDES/DOCUSATE SODIUM TAB PO SCH (21:35)
[2017-03-08 04:32] LABS: PLATELET COUNT 424 10^3/uL (150-400)
[2017-03-08] MEDS: FUROSEMIDE 20 MG TAB PO SCH ×2 (09:32→17:02)
[2017-03-08] MEDS: SENNOSIDES/DOCUSATE SODIUM TAB PO SCH ×2 (09:32→19:56)
[2017-03-08] MEDS: SPIRONOLACTONE 50 MG TAB PO SCH (09:32)
[2017-03-08] MEDS ORDERED: ALBUMIN 25% 200 ML IV ONE ×2 (10:30→14:00)
--- NOTE | 2017-03-08 11:37 | SOAPPROG ---
SOAP Progress Note Assessment/Plan: Assessment: 1. HCC; metastatic. 2. Malignant ascites. 3. Portal HTN. 4. Hyponatremia, improved. 5. BERNY/AGMA. 6. Patient ate Bagel this am and not candidate for EGD today. Plan: 1. Patient declined [place] shunt. He has decided to start Hospice care, go home tomorrow and get his personal issues in order and fly to [place] to spend time with family. 2. Paracentesis today. 3. NPO after MN. 3. EGD with MAC tomorrow. Flaco Coates MD 03/08/17 11:38 Subjective: CC: Ascites, HCC. Interval HPI: Patient wants EGD prior to DC however he ate Bagel today. No new GI complaints. Objective: Vital Signs Temp Pulse Resp BP Pulse Ox 36.2 C 80 18 139/92 H 95 03/08/17 09:40 03/08/17 09:40 03/08/17 09:40 03/08/17 09:40 03/08/17 09:40 Microbiology 03/01/17 17:02 Gram Stain - Final Peritoneal Fluid - Aspirate Laboratory Results 03/08/17 04:25 03/08/17 04:25 03/07/17 03/08/17 03/09/17 05:59 05:59 05:59 Intake Total 1950 850 Output Total 252 600 Balance 1698 250 PT 17.0 SEC (12.0-15.0) H 03/04/17 04:50 INR 1.39 (0.83-1.16) H 03/04/17 04:50 Physical Exam - Physical Exam General Appearance: alert, no apparent distress Respiratory: lungs clear Cardiac/Chest: regular rate, rhythm Abdomen: non-tender, soft, distended Skin: warm/dry Neuro/Psych: alert, normal mood/affect, oriented x 3 ICD10 Worksheet Patient Problems: Problems Problem Status Onset Spontaneous bacterial peritonitis Acute
[2017-03-08] MEDS ORDERED: LIDOCAINE 1% 300 MG/30 ML SDV ONE (11:47)
--- NOTE | 2017-03-08 16:06 | HOSPPROG ---
Hospitalist Progress Note Assessment/Plan: * Hepatocellular carcinoma - diffuse involvement right hepatic lobe -AFP 363,000 - diagnostic of HCC without biopsy needed -patient declines chemo - on palliative care - not yet ready for hospice -outpatient oncology follow-up recommended by Dr. Dee to fully discuss options * Malignant ascites (cytology negative, but presumed given hemorrhagic nature) -repeat paracentesis today for comfort - 2200 cc removed - followed by IV albumin -continue lasix + aldactone * Possible esophageal varices -d/w Dr. Coates - EGD with possible banding in am * SBP -s/p 7 days IV ceftriaxone * Portal vein thrombosis - no anticoagulation indicated (likely chronic) * Hep C * Elevated lactate - due to hepatic dysfunction * Hyponatremia -fluid restrict Subjective: Feels much better after paracentesis today. Ate a bagel this morning so EGD rescheduled for tomorrow, d/w Dr. Coates Objective: Vital Signs Temp Pulse Resp BP Pulse Ox 36.8 C 81 18 143/92 H 94 03/08/17 15:43 03/08/17 15:43 03/08/17 15:43 03/08/17 15:43 03/08/17 15:43 Microbiology 03/01/17 17:02 Gram Stain - Final Peritoneal Fluid - Aspirate Anaerobic Culture - Final Laboratory Results 03/08/17 04:25 03/08/17 04:25 03/07/17 03/08/17 03/09/17 05:59 05:59 05:59 Intake Total 1950 850 Output Total 252 600 Balance 1698 250 PT 17.0 SEC (12.0-15.0) H 03/04/17 04:50 INR 1.39 (0.83-1.16) H 03/04/17 04:50 paracentesis reviewed - 2200 cc stephania colored fluid with minimal residual - Physical Exam Constitutional: no apparent distress, appears nourished, not in pain Cardiovascular: regular rate and rhythym, no murmur, rub, or gallop Respiratory: no respiratory distress, no rales or rhonchi, clear to auscultation Gastrointestinal: normoactive bowel sounds, soft, non-tender abdomen, no palpable masses Skin: no rashes or abrasions, no fluctuance, no induration Neurologic: AAOx3, sensation intact bilaterally Psychiatric: interacting appropriately, not anxious, not encephalopathic, thought process linear ICD10 Worksheet Patient Problems: Problems Problem Status Onset Spontaneous bacterial peritonitis Acute
--- NOTE | 2017-03-08 17:51 | ASMTCMCOM ---
CM Note CM Note Notes: C/M spoke with pt and partner Kaelyn about plans for using Palliative and Hospice. Patient and partner had talked with [facility] but had made a decision not to have hospice prior to going to [place] on Wednesday night to see his daughters and grandchildren to be able to tell them goodbye. I suggested to them the possibiity of using [facility] but they said they prefer to just wait until they get back to begin with [facility] . She said that she plans to take all paperwork including MOST, MDPOA and POA forms along should they be confronted with making decisions around patients wishes while they are in [place]. Kaelyn said that they will return on Wednesday morning at 5:00am. She said when they return they will immediately call [facility] and sign for services. Case management will continue to follow. Date Signed: 03/08/2017 05:50 PM Electronically Signed By:VICENTE Major
--- NOTE | 2017-03-08 17:51 | ASMTCMCOM ---
CM Note CM Note Notes: C/M spoke with pt and partner Kaelyn about plans for using Palliative and Hospice. Patient and partner had talked with [facility] but had made a decision not to have hospice prior to going to [place] on Wednesday night to see his daughters and grandchildren to be able to tell them goodbye. I suggested to them the possibiity of using [facility] but they said they prefer to just wait until they get back to begin with [facility] . She said that she plans to take all paperwork including MOST, MDPOA and POA forms along should they be confronted with making decisions around patients wishes while they are in [place]. Kaelyn said that they will return on Wednesday morning at 5:00am. She said when they return they will immediately call [facility] and sign for services. Case management will continue to follow. Date Signed: 03/08/2017 05:50 PM Electronically Signed By:VICENTE Major
--- NOTE | 2017-03-08 17:51 | ASMTCMCOM ---
CM Note CM Note Notes: C/M spoke with pt and partner Kaelyn about plans for using Palliative and Hospice. Patient and partner had talked with [facility] but had made a decision not to have hospice prior to going to [place] on Wednesday night to see his daughters and grandchildren to be able to tell them goodbye. I suggested to them the possibiity of using [facility] but they said they prefer to just wait until they get back to begin with [facility] . She said that she plans to take all paperwork including MOST, MDPOA and POA forms along should they be confronted with making decisions around patients wishes while they are in [place]. Kaelyn said that they will return on Wednesday morning at 5:00am. She said when they return they will immediately call [facility] and sign for services. Case management will continue to follow. Date Signed: 03/08/2017 05:50 PM Electronically Signed By:VICENTE Major
[2017-03-08] MEDS: SIMETHICONE 80 MG TAB CHEW PO PRN (19:56)
[2017-03-09 05:18] LABS: PLATELET COUNT 437 10^3/uL (150-400)
[2017-03-09] MEDS: SENNOSIDES/DOCUSATE SODIUM TAB PO SCH (10:30)
[2017-03-09 11:24] VITALS: PULSE 102
[2017-03-09] MEDS ORDERED: LR 1,000 ML IV ONE (11:25)
--- NOTE | 2017-03-09 11:55 | PDANEPAE ---
ANE Past Medical History - Pulmonary History Hx COPD: Yes Hx Oxygen in Use at Home: No Hx Sleep Apnea: No Sleep Apnea Screening Result - Last Documented: Negative - Endocrine History Hx Diabetes: No - Liver History Hepatic History Comment: hep c ANE Review of Systems Review of Systems: ANE Patient History - Allergies Allergies/Adverse Reactions: ibuprofen Allergy (Verified 03/01/17 13:08) - Home Medications Home Medications: Herbals/Supplements -Info Only 1 ea PO DAILY 03/01/17 [Last Taken Unknown] - NPO status NPO Since - Liquids (Date): 03/08/17 NPO Since - Liquids (Time): 20:00 NPO Since - Solids (Date): 03/08/17 NPO Since - Solids (Time): 18:00 - Anes Hx Anes Hx: no prior problems - Smoking Hx Smoking Status: Former smoker - Alcohol Use Alcohol Use: Sober ANE Labs/Vital Signs - Labs Result Diagrams: 03/09/17 04:55 03/09/17 04:55 - Vital Signs Blood Pressure: 130/92 Heart Rate: 102 Respiratory Rate: 18 O2 Sat (%): 94 Height: 175.26 cm Weight: 78.335 kg ANE Physical Exam - Airway Mallampati Score: Class 2 - ASA Status ASA Status: III ANE Anesthesia Plan Total IV Anesthesia: Yes
[2017-03-09] MEDS ORDERED: PROPOFOL/EMULSION 500 MG/50 ML BOTTLE IV ONE (11:56)
[2017-03-09] MEDS ORDERED: NALOXONE HCL 0.4 MG/ML INJ IVP PRN (12:14)
[2017-03-09] MEDS ORDERED: ALBUTEROL 3 ML DEYVIAL IH PRN (12:14)
[2017-03-09] MEDS ORDERED: fentaNYL 100 MCG/2 ML INJ IVP PRN (12:14)
[2017-03-09] MEDS ORDERED: LR 500 ML IV PRN (12:14)
--- NOTE | 2017-03-09 12:14 | GIREPORT ---
[facility] Surgical Services - Endoscopy Department Patient Name: Eloy Monreal Procedure Date: 03/09/2017 11:56 AM Patient Type: Inpatient Attending MD/ ER Physician: Gagan Christopher MD Procedure: Upper GI endoscopy Indications: Heartburn, Cirrhosis rule out esophageal varices Providers: Gagan Christopher MD Medicines: Monitored Anesthesia Care Complications: No immediate complications. Description of Procedure: After obtaining informed consent, the endoscope was passed under direct vision. Throughout the procedure, the patient's blood pressure, pulse, and oxygen saturations were monitored continuously. The Endoscope was intro duced through the mouth, and advanced to the second part of duodenum. The [facility] er GI endoscopy was accomplished without difficulty. The patient tolerated th e procedure well. Findings: Two small columns of grade I varices were found in the lower third of t he esophagus. Localized mild inflammation characterized by erythema was found on the greater curvature of the stomach, on the lesser curvature of the stomac h and in the gastric antrum. The examined duodenum was normal. Estimated Blood Loss: Estimated blood loss: none. Post Op Diagnosis: - Grade I esophageal varices (2 small columns). Given the small size of the varices, no banding was performed. - Gastritis. - Normal examined duodenum. - No specimens collected. Recommendation: - Return patient to hospital mg for ongoing care. - Resume previous diet. - Continue present medications. - Consider starting Nadolol 20mg orally daily. - Thank you for allowing me to participate in the care of your patient. Attending Participation: I personally performed the entire procedure. Gagan Christopher MD Gagan Christopher MD 03/09/2017 12:13:45 PM This report has been signed electronicallyDakhris Christopher MD Number of Addenda: 0 Note Initiated On: 03/09/2017 11:56 AM [email or web address]}
--- NOTE | 2017-03-09 12:14 | GIREPORT ---
[facility] Surgical Services - Endoscopy Department Patient Name: Eloy Monreal Procedure Date: 03/09/2017 11:56 AM Patient Type: Inpatient Attending MD/ ER Physician: Gagan Christopher MD Procedure: Upper GI endoscopy Indications: Heartburn, Cirrhosis rule out esophageal varices Providers: Gagan Christopher MD Medicines: Monitored Anesthesia Care Complications: No immediate complications. Description of Procedure: After obtaining informed consent, the endoscope was passed under direct vision. Throughout the procedure, the patient's blood pressure, pulse, and oxygen saturations were monitored continuously. The Endoscope was intro duced through the mouth, and advanced to the second part of duodenum. The [facility] er GI endoscopy was accomplished without difficulty. The patient tolerated th e procedure well. Findings: Two small columns of grade I varices were found in the lower third of t he esophagus. Localized mild inflammation characterized by erythema was found on the greater curvature of the stomach, on the lesser curvature of the stomac h and in the gastric antrum. The examined duodenum was normal. Estimated Blood Loss: Estimated blood loss: none. Post Op Diagnosis: - Grade I esophageal varices (2 small columns). Given the small size of the varices, no banding was performed. - Gastritis. - Normal examined duodenum. - No specimens collected. Recommendation: - Return patient to hospital mg for ongoing care. - Resume previous diet. - Continue present medications. - Consider starting Nadolol 20mg orally daily. - Thank you for allowing me to participate in the care of your patient. Attending Participation: I personally performed the entire procedure. Gagan Christopher MD Gagan Christopher MD 03/09/2017 12:13:45 PM This report has been signed electronicallyDakhris Christopher MD Number of Addenda: 0 Note Initiated On: 03/09/2017 11:56 AM [email or web address]}
--- NOTE | 2017-03-09 12:14 | GIREPORT ---
[facility] Surgical Services - Endoscopy Department Patient Name: Eloy Monreal Procedure Date: 03/09/2017 11:56 AM Patient Type: Inpatient Attending MD/ ER Physician: Gagan Christopher MD Procedure: Upper GI endoscopy Indications: Heartburn, Cirrhosis rule out esophageal varices Providers: Gagan Christopher MD Medicines: Monitored Anesthesia Care Complications: No immediate complications. Description of Procedure: After obtaining informed consent, the endoscope was passed under direct vision. Throughout the procedure, the patient's blood pressure, pulse, and oxygen saturations were monitored continuously. The Endoscope was intro duced through the mouth, and advanced to the second part of duodenum. The [facility] er GI endoscopy was accomplished without difficulty. The patient tolerated th e procedure well. Findings: Two small columns of grade I varices were found in the lower third of t he esophagus. Localized mild inflammation characterized by erythema was found on the greater curvature of the stomach, on the lesser curvature of the stomac h and in the gastric antrum. The examined duodenum was normal. Estimated Blood Loss: Estimated blood loss: none. Post Op Diagnosis: - Grade I esophageal varices (2 small columns). Given the small size of the varices, no banding was performed. - Gastritis. - Normal examined duodenum. - No specimens collected. Recommendation: - Return patient to hospital mg for ongoing care. - Resume previous diet. - Continue present medications. - Consider starting Nadolol 20mg orally daily. - Thank you for allowing me to participate in the care of your patient. Attending Participation: I personally performed the entire procedure. Gagan Christopher MD Gagan Christopher MD 03/09/2017 12:13:45 PM This report has been signed electronicallyDakhris Christopher MD Number of Addenda: 0 Note Initiated On: 03/09/2017 11:56 AM [email or web address]}
--- NOTE | 2017-03-09 12:15 | POSTANESTH ---
Post Anesthetic Evaluation Cardiovascular Status: Normal, Stable Respiratory Status: Normal, Stable Level of Consciousness/Mental Status: Can Participate in Eval Pain Control: Adequate, Prn Tx Ordered Nausea/Vomiting Control: Adequate, Prn Tx Ordered Complications Possibly Related to Anesthesia: None Noted
[2017-03-09 12:46] VITALS: TEMP 97.9; O2SAT 96
[2017-03-09 13:07] VITALS: BP 125/77; RESP 24
[2017-03-09] MEDS: FUROSEMIDE 20 MG TAB PO SCH ×2 (13:24→17:03)
[2017-03-09] MEDS: SIMETHICONE 80 MG TAB CHEW PO PRN (13:25)
[2017-03-09] MEDS: SPIRONOLACTONE 50 MG TAB PO SCH (13:25)
--- NOTE | 2017-03-09 14:41 | PDDCSUM ---
Discharge Summary Discharge Summary: Dates of service: 03/01-03/09/17 consultations: GI, oncology, IR, renal procedures: EGD, paracentesis x 2, abd ct, chest ct Hospital course by problem: * Hepatocellular carcinoma - diffuse involvement right hepatic lobe -AFP 363,000 - diagnostic of HCC without biopsy needed -patient declines chemo - on palliative care and plans to f/u with hospice once he has gone to [place] to see his children and say goodbye * Malignant ascites (cytology negative, but presumed given hemorrhagic nature) -continue lasix + aldactone with fluid reaccumulating prior to dc, explained that this would likely continue to occur * Possible esophageal varices -egd performed prior to dc and nothing to band * SBP -s/p 7 days IV ceftriaxone * Portal vein thrombosis - no anticoagulation indicated (likely chronic) * Hep C * Elevated lactate - due to hepatic dysfunction * Hyponatremia -fluid restrict dc home, f/u with hospice in coming week after going to [place] to see his children > 35 minutes spent in dc more than half in coordination of care
--- NOTE | 2017-03-09 14:41 | PDIAF ---
- Diagnosis Code Status: Do Not Resuscitate - Medication Management Discharge Medications: Medications to Continue on Transfer Furosemide [Lasix 20 MG (*)] 20 mg PO BID@0900,1500 #60 tab 03/09/17 [Last Taken Unknown] Ondansetron Odt [Zofran Odt 4 mg (*)] 4 mg PO Q4HRS PRN #40 tab 03/09/17 [Last Taken Unknown] Polyethylene Glycol 3350 [Miralax 17 gm (*)] 17 gm PO DAILY PRN pkt 03/09/17 [ Last Taken Unknown] Sennosides/Docusate Sodium [Senokot-S] 1 - 2 tab PO BID tab 03/09/17 [Last Taken Unknown] Simethicone [Mylicon] 80 mg PO PCHS PRN tab.chew 03/09/17 [Last Taken Unknown] Spironolactone [Aldactone] 50 mg PO DAILY #30 tab 03/09/17 [Last Taken Unknown] diphenhydrAMINE [Benadryl 50 MG (*)] 50 mg PO Q6HRS PRN cap 03/09/17 [Last Taken Unknown] oxyCODONE IR [Oxycodone Ir (*)] 5 mg PO Q4HRS PRN #40 tab 03/09/17 [Last Taken Unknown] Discharge Medications: Refer to the Discharge Home Medication list for PRN reason. - Orders Services needed: Registered Nurse, Certified Self Propelled Hot Mix Roller Operator Diet Recommendation: no restrictions on diet - Follow Up Care Current Providers and Referrals: NONE *PRIMARY CARE P,. [Primary Care Provider] - As per Instructions
--- NOTE | 2017-03-09 15:44 | ASMTCMCOM ---
CM Note CM Note Notes: Patient had EGD today and plans to discharge home today with his partner Kaelyn. He plans to go to [place] where his home is and then on Wednesday plans to travel to [place] to see his daughters and grandchildren. He has not yet told his daughters about his illness but wanted to do it face to face with them. They plan to return to [place] on Wednesday morning at which time they will see [facility] hospice to enter their services. This C/M spoke with [facility] child protective services social worker to let her know about our concern that patient could not enter hospice in [place] prior to going to [place] without being discharged from [facility]. Concerns discussed with Eleni Palliative RN and Brennan Palliative and game programer. No additional discharge needs apparent at this time. Date Signed: 03/09/2017 03:44 PM Electronically Signed By:VICENTE Major
--- NOTE | 2017-03-09 15:44 | ASMTCMCOM ---
CM Note CM Note Notes: Patient had EGD today and plans to discharge home today with his partner Kaelyn. He plans to go to [place] where his home is and then on Wednesday plans to travel to [place] to see his daughters and grandchildren. He has not yet told his daughters about his illness but wanted to do it face to face with them. They plan to return to [place] on Wednesday morning at which time they will see [facility] hospice to enter their services. This C/M spoke with [facility] psych social worker to let her know about our concern that patient could not enter hospice in [place] prior to going to [place] without being discharged from [facility]. Concerns discussed with Eleni Palliative RN and Brennan Palliative and alpaca farmer. No additional discharge needs apparent at this time. Date Signed: 03/09/2017 03:44 PM Electronically Signed By:VICENTE Major
--- NOTE | 2017-03-09 15:44 | ASMTCMCOM ---
CM Note CM Note Notes: Patient had EGD today and plans to discharge home today with his partner Kaelyn. He plans to go to [place] where his home is and then on Wednesday plans to travel to [place] to see his daughters and grandchildren. He has not yet told his daughters about his illness but wanted to do it face to face with them. They plan to return to [place] on Wednesday morning at which time they will see [facility] hospice to enter their services. This C/M spoke with [facility] hospital social worker to let her know about our concern that patient could not enter hospice in [place] prior to going to [place] without being discharged from [facility]. Concerns discussed with Eleni Palliative RN and Brennan Palliative and carpenter assistant. No additional discharge needs apparent at this time. Date Signed: 03/09/2017 03:44 PM Electronically Signed By:VICENTE Major
--- NOTE | 2017-03-10 10:53 | ASDISCHSUM ---
Discharge Information Plan Status:Hospice-Home Medically Cleared to Leave:03/09/2017 Discharge Date:03/09/2017 05:08 PM CM D/C Disposition:Hospice Home ADT D/C Disposition:Hospice Home Projected Discharge Date:03/09/2017 04:00 PM Transportation at D/C:Family Discharge Delay Reason: Follow-Up Date:03/09/2017 04:00 PM Discharge Slot: Final Diagnosis: Placement Information Referral Type:*Hospice Referral ID:[id number] Provider [facility] Address 1:[address] [place] Address 2: City:[place] Selection Factors: State:[place] Patient Contact Information Contact Name:ELEONORA Relationship: Address: Home Phone: Work Phone: City: [facility] [place] Phone: [facility]/[employer] Code: Email: Financial Information Financial Class: Primary Plan Desc:MED[place] Primary Plan Number:[id number] Secondary Plan Desc: Secondary Plan Number: Assessment Information [facility] CM Progress Note CM Note CM Note Notes: Patient notified today by Dr. Dee that he has hepatocellular carcinoma. Patient currently uncertain what he may want to do regarding treatment. Patients partner here with hime. Case managment will follow to provide ongoing support and assist in decision making where appropriate. Date Signed: 03/02/2017 05:55 PM Electronically Signed By:VICENTE Major [facility] CM Progress Note CM Note CM Note Notes: MELLO Nolen from [facility] Hospice met with pt and friend Benson today to discuss hospice. Pt and benson are interested in signing on with hpspice at [place]. They will need a hospice order. Pt would like to visit his children and grandchildren in [place] within a week after [place]. Pt may get a drain placed and he and Benson were wondering if their is a hospice that can help pt manage his drain in [place] while they are visiting. Spoke with Adelina at [facility] and she stated that once pt is admitted into [facility] at [place], they will assist with finising a hospice in [place] while he is there and also make sure he has the correct adv. directives paperwork for [place]. Will submit pt's name for [facility]. C/M to follow. Date Signed: 03/04/2017 03:15 PM Electronically Signed By:Stephanie Delgado LCSW [facility] CM Progress Note CM Note CM Note Notes: Current plan is for pt to DC on Wednesday. Pt would like hospice to start at [place]. Faxed [facility] hospice order and alerted them to DC plan. Pt given 3 $100 gift cards from the [employer]. C/M to follow. Date Signed: 03/05/2017 02:14 PM Electronically Signed By:Stephanie Delgado LCSW [facility] Length of stay for Answers: 4-6 days current admission Acuity / Level of Care Answers: Was the patient admitted to hospital via the emergency department? Yes: Comorbidities - select Answers: Metastatic solid tumor all that apply Emergency dept visits in Answers: 0 last 6 months Score: 13 Date Signed: 03/06/2017 09:13 AM Electronically Signed By:Stephanie Delgado LCSW [facility] Progress Note CM Note CM Note Notes: Chart reviewed. Spoke to his nurse Hemalatha.Met with patient and his ex partner Kaelyn. Patient has elected to decline hospice care at present time and wishes to proceed with palliative care. Consult ordered, message left at [phone] for palliative Care Team. Call to [facility] and spoke with Angela and she will cancel the afternoon appointment previously set up. Pateint would like to proceed with endoscopy as inpatient if possible. Current plan is to delay discharge, when he leaves he and his ex partner Kaelyn plan on going to he [place] home and from there travel to [place] so the patient may see his two daughters and grandchild prior to entering a hospice situation. CM to follow. Date Signed: 03/07/2017 03:32 PM Electronically Signed By:Zaira Castro RN [facility] Progress Note CM Note CM Note Notes: C/M spoke with pt and partner Kaelyn about plans for using Palliative and Hospice. Patient and partner had talked with [facility] hospice but had made a decision not to have hospice prior to going to [place] on Wednesday night to see his daughters and grandchildren to be able to tell them goodbye. I suggested to them the possibiity of using [facility] but they said they prefer to just wait until they get back to begin with [facility] hospice . She said that she plans to take all paperwork including MOST, MDPOA and POA forms along should they be confronted with making decisions around patients wishes while they are in [place]. Kaelyn said that they will return on Wednesday at 5:00am. She said when they return they will immediately call [facility] and sign for services. Case management will continue to follow. Date Signed: 03/08/2017 05:50 PM Electronically Signed By:VICENTE Major [facility] Progress Note CM Note CM Note Notes: Patient had EGD today and plans to discharge home today with his partner Kaelyn. He plans to go to [place] where his home is and then on Wednesday plans to travel to [place] to see his daughters and grandchildren. He has not yet told his daughters about his illness but wanted to do it face to face with them. They plan to return to [place] on Wednesday at which time they will see [facility] hospice to enter their services. This C/M spoke with [facility] social services assistant to let her know about our concern that patient could not enter hospice in [place] prior to going to [place] without being discharged from [facility]. Concerns discussed with Eleni Palliative RN and Brennan Palliative and body shop estimator. No additional discharge needs apparent at this time. Date Signed: 03/09/2017 03:44 PM Electronically Signed By:VICENTE Major [facility] Progress Note CM Note CM Note Notes: Pt DC'd yesterday. Today, pt's friend Benson (.[id number]) called [facility] to say that pt had a fever and was wondering what they can do about it. Pt does not have PCP or oncologist b/c plan was hospice after he returned from his trip to [place] to visit his daughters. Spoke with Adelina at [facility] hospice who stated they would be happy to admit pt today. Called Benson back and she asked pt. Both agreed to a hospice admission today. Faxed final orders to [facility]. Date Signed: 03/10/2017 11:36 AM Electronically Signed By:Stephanie Delgado LCSW Intervention Information
--- NOTE | 2017-03-10 10:53 | ASDISCHSUM ---
Discharge Information Plan Status:Hospice-Home Medically Cleared to Leave:03/09/2017 Discharge Date:03/09/2017 05:08 PM CM D/C Disposition:Hospice Home ADT D/C Disposition:Hospice Home Projected Discharge Date:03/09/2017 04:00 PM Transportation at D/C:Family Discharge Delay Reason: Follow-Up Date:03/09/2017 04:00 PM Discharge Slot: Final Diagnosis: Placement Information Referral Type:*Hospice Referral ID:[id number] Provider Name:[facility] ([facility]) Address 1:[address] [place] Address 2: City:[place] Selection Factors: State:[place] Patient Contact Information Contact Name:ELEONORA Relationship: Address: Home Phone: Work Phone: City: [facility] Phone: [facility] Code: Email: Financial Information Financial Class: Primary Plan Desc:MED[place] Primary Plan Number:[id number] Secondary Plan Desc: Secondary Plan Number: Assessment Information [facility] CM Progress Note CM Note CM Note Notes: Patient notified today by Dr. Dee that he has hepatocellular carcinoma. Patient currently uncertain what he may want to do regarding treatment. Patients partner here with hime. Case managment will follow to provide ongoing support and assist in decision making where appropriate. Date Signed: 03/02/2017 05:55 PM Electronically Signed By:VICENTE Major [facility] CM Progress Note CM Note CM Note Notes: MELLO Nolen from [facility] met with pt and friend Benson today to discuss hospice. Pt and benson [facility] will need a hospice order. Pt would like to visit his children and grandchildren in [place] a [place] after [facility]. Pt may get a drain placed and he and Benson were wondering if their is a hospice that can help pt manage his drain in [place] while they are visiting. Spoke with Adelina at [facility] and she stated that once pt is [facility] into [facility], they will assist with finising a hospice in [place] while he is there and also make sure he has the correct adv. directives paperwork for [place]. Will submit pt's name for [facility]. C/M to follow. Date Signed: 03/04/2017 03:15 PM Electronically Signed By:Stephanie Delgado LCSW [facility] CM Progress Note CM Note CM Note Notes: Current plan is for pt to DC on Wednesday. [facility]. Faxed [facility] hospice order and alerted them to DC plan. Pt given 3 $100 gift cards from the [employer]. C/M to follow. Date Signed: 03/05/2017 02:14 PM Electronically Signed By:Stephanie Delgado LCSW [facility] Length of stay for Answers: 4-6 days current admission Acuity / Level of Care Answers: Was the patient admitted to hospital via the emergency department? Yes: Comorbidities - select Answers: Metastatic solid tumor all that apply Emergency dept visits in Answers: 0 last 6 months Score: 13 Date Signed: 03/06/2017 09:13 AM Electronically Signed By:Stephanie Delgado LCSW [facility] Progress Note CM Note CM Note Notes: Chart reviewed. Spoke to his nurse Hemalatha.Met with patient and his ex partner Kaelyn. Patient has elected to decline hospice care at present time and wishes to proceed with palliative care. Consult ordered, message left at [phone] for palliative Care Team. Call to [facility] and spoke with Angela and she will cancel the afternoon appointment previously set up. Pateint would like to proceed with endoscopy as inpatient if possible. Current plan is to delay discharge, when he leaves he and his ex partner Kaelyn plan on going to he [place] home and from there travel to [place] so the patient may see his two daughters and grandchild prior to entering a hospice situation. CM to follow. Date Signed: 03/07/2017 03:32 PM Electronically Signed By:Zaira Castro RN [facility] Progress Note CM Note CM Note Notes: C/M spoke with pt and partner Kaelyn about plans for using Palliative and Hospice. Patient and partner had talked with [facility] hospice but had made a decision not to have hospice prior to going to [place] on Wednesday night to see his daughters and grandchildren to be able to tell them goodbye. I suggested to them the possibiity of using [facility] but they said they prefer to just wait until they get back to begin with [facility] hospice . She said that she plans to take all paperwork including MOST, MDPOA and POA forms along should they be confronted with making decisions around patients wishes while they are in [place]. Kaelyn said that they will return on Wednesday at 5:00am. She said when they return they will immediately call [facility] and sign for services. Case management will continue to follow. Date Signed: 03/08/2017 05:50 PM Electronically Signed By:VICENTE Major [facility] NEYMAR Progress Note CM Note CM Note Notes: Patient had EGD today and plans to discharge home today with his partner Kaelyn. He plans to go to [place] where his home is and then on Wednesday plans to travel to [place] to see his daughters and grandchildren. He has not yet told his daughters about his illness but wanted to do it face to face with them. They plan to return to [place] on Wednesday at which time they will see [facility] hospice to enter their services. This C/M spoke with [facility] social science manager to let her know about our concern that patient could not enter hospice in [place] prior to going to [place] without being discharged from [facility]. Concerns discussed with Eleni Palliative RN and Brennan Palliative and options advisor. No additional discharge needs apparent at this time. Date Signed: 03/09/2017 03:44 PM Electronically Signed By:VICENTE Major [facility] Progress Note CM Note CM Note Notes: Pt DC'd yesterday. Today, pt's friend Benson (.[phone]) called [facility] to say that pt had a fever and was wondering what they can do about it. Pt does not have PCP or oncologist b/c plan was hospice after he returned from his trip to [place] to visit his daughters. Spoke with Adelina at [facility] hospice who stated they would be happy to admit pt today. Called Benson back and she asked pt. Both agreed to a hospice admission today. Faxed final orders to [facility]. Date Signed: 03/10/2017 11:36 AM Electronically Signed By:Stephanie Delgado LCSW Intervention Information
--- NOTE | 2017-03-10 10:53 | ASDISCHSUM ---
Discharge Information Plan Status:Hospice-Home Medically Cleared to Leave:03/09/2017 Discharge Date:03/09/2017 05:08 PM CM D/C Disposition:Hospice Home ADT D/C Disposition:Hospice Home Projected Discharge Date:03/09/2017 04:00 PM Transportation at D/C:Family Discharge Delay Reason: Follow-Up Date:03/09/2017 04:00 PM Discharge Slot: Final Diagnosis: Placement Information Referral Type:*Hospice Referral ID:[id number] Provider Name:[facility] ([facility]) Address 1:[address] [place] Address 2: City:[place] Selection Factors: State:[place] Patient Contact Information Contact Name:ELEONORA Relationship: Address: Home Phone: Work Phone: City: [facility] Phone: [facility] Code: Email: Financial Information Financial Class: Primary Plan Desc:MED[place] Primary Plan Number:[id number] Secondary Plan Desc: Secondary Plan Number: Assessment Information [facility] CM Progress Note CM Note CM Note Notes: Patient notified today by Dr. Dee that he has hepatocellular carcinoma. Patient currently uncertain what he may want to do regarding treatment. Patients partner here with hime. Case managment will follow to provide ongoing support and assist in decision making where appropriate. Date Signed: 03/02/2017 05:55 PM Electronically Signed By:VICENTE Major [facility] CM Progress Note CM Note CM Note Notes: MELLO Nolen from [facility] met with pt and friend Benson today to discuss hospice. Pt and benson are interested in signing on with hpspice at [place]. They will need a hospice order. Pt would like to visit his children and grandchildren in [place] within a week after [place]. Pt may get a drain placed and he and Benson were wondering if their is a hospice that can help pt manage his drain in [place] while they are visiting. Spoke with Adelina at [facility] and she stated that once pt is admitted into [facility] at [place], they will assist with finising a hospice in [place] while he is there and also make sure he has the correct adv. directives paperwork for [place]. Will submit pt's name for [facility]. C/M to follow. Date Signed: 03/04/2017 03:15 PM Electronically Signed By:Stephanie Delgado LCSW [facility] CM Progress Note CM Note CM Note Notes: Current plan is for pt to DC on Wednesday. Pt would like hospice to start at [place]. Faxed [facility] hospice order and alerted them to DC plan. Pt given 3 $100 gift cards from the [employer]. C/M to follow. Date Signed: 03/05/2017 02:14 PM Electronically Signed By:Stephanie Delgado LCSW [facility] Length of stay for Answers: 4-6 days current admission Acuity / Level of Care Answers: Was the patient admitted to hospital via the emergency department? Yes: Comorbidities - select Answers: Metastatic solid tumor all that apply Emergency dept visits in Answers: 0 last 6 months Score: 13 Date Signed: 03/06/2017 09:13 AM Electronically Signed By:Stephanie Delgado LCSW [facility] Progress Note CM Note CM Note Notes: Chart reviewed. Spoke to his nurse Hemalatha.Met with patient and his ex partner Kaelyn. Patient has elected to decline hospice care at present time and wishes to proceed with palliative care. Consult ordered, message left at [phone] for palliative Care Team. Call to [facility] and spoke with Angela and she will cancel the afternoon appointment previously set up. Pateint would like to proceed with endoscopy as inpatient if possible. Current plan is to delay discharge, when he leaves he and his ex partner Kaelyn plan on going to he [place] home and from there travel to [place] so the patient may see his two daughters and grandchild prior to entering a hospice situation. CM to follow. Date Signed: 03/07/2017 03:32 PM Electronically Signed By:Zaira Castro RN [facility] Progress Note CM Note CM Note Notes: C/M spoke with pt and partner Kaelyn about plans for using Palliative and Hospice. Patient and partner had talked with [facility] hospice but had made a decision not to have hospice prior to going to [place] on Wednesday night to see his daughters and grandchildren to be able to tell them goodbye. I suggested to them the possibiity of using [facility] but they said they prefer to just wait until they get back to begin with [facility] hospice . She said that she plans to take all paperwork including MOST, MDPOA and POA forms along should they be confronted with making decisions around patients wishes while they are in [place]. Kaelyn said that they will return on Wednesday at 5:00am. She said when they return they will immediately call [facility] and sign for services. Case management will continue to follow. Date Signed: 03/08/2017 05:50 PM Electronically Signed By:VICENTE Major [facility] NEY[facility] Progress Note CM Note CM Note Notes: Patient had EGD today and plans to discharge home today with his partner Kaelyn. He plans to go to [place] where his home is and then on Wednesday plans to travel to [place] to see his daughters and grandchildren. He has not yet told his daughters about his illness but wanted to do it face to face with them. They plan to return to [place] on Wednesday at which time they will see [facility] hospice to enter their services. This C/M spoke with [facility] social worker psychiatric to let her know about our concern that patient could not enter hospice in [place] prior to going to [place] without being discharged from [facility]. Concerns discussed with Eleni Palliative RN and Brennan Palliative and compliance spec. No additional discharge needs apparent at this time. Date Signed: 03/09/2017 03:44 PM Electronically Signed By:VICENTE Major [facility] Progress Note CM Note CM Note Notes: Pt DC'd yesterday. Today, pt's friend Benson (.[phone]) called [facility] [place] [facility] to say that pt had a fever and was wondering what they can do about it. Pt does not have PCP or oncologist b/c plan was hospice after he returned from his trip to [place] to visit his daughters. Spoke with Adelina at [facility] hospice who stated they would be happy to admit pt today. Called Benson back and she asked pt. Both agreed to a hospice admission today. Faxed final orders to [facility]. Date Signed: 03/10/2017 11:36 AM Electronically Signed By:Stephanie Delgado LCSW Intervention Information
--- NOTE | 2017-03-10 11:37 | ASMTCMCOM ---
CM Note CM Note Notes: Pt DC'd yesterday. Today, pt's friend Leah (.[id number]) called [facility] to say that pt had a fever and was wondering what they can do about it. Pt does not have PCP or oncologist b/c plan was hospice after he returned from his trip to [place] to visit his daughters. Spoke with Adelina at [facility] hospice who stated they would be happy to admit pt today. Called Leah back and she asked pt. Both agreed to a hospice admission today. Faxed final orders to [facility]. Date Signed: 03/10/2017 11:36 AM Electronically Signed By:Stephanie Delgado LCSW
--- NOTE | 2017-03-10 11:37 | ASMTCMCOM ---
CM Note CM Note Notes: Pt DC'd yesterday. Today, pt's friend Leah (.[phone]) called [facility] ivett johnson to say that pt had a fever and was wondering what they can do about it. Pt does not have PCP or oncologist b/c plan was hospice after he returned from his trip to [place] to visit his daughters. Spoke with Adelina at [facility] hospice who stated they would be happy to admit pt today. Called Leah back and she asked pt. Both agreed to a hospice admission today. Faxed final orders to [facility]. Date Signed: 03/10/2017 11:36 AM Electronically Signed By:Stephanie Delgado LCSW
--- NOTE | 2017-03-10 11:37 | ASMTCMCOM ---
CM Note CM Note Notes: Pt DC'd yesterday. Today, pt's friend Leah (.[phone]) called [facility]ett johnson to say that pt had a fever and was wondering what they can do about it. Pt does not have PCP or oncologist b/c plan was hospice after he returned from his trip to [place] to visit his daughters. Spoke with Adelina at [facility] hospice who stated they would be happy to admit pt today. Called Leah back and she asked pt. Both agreed to a hospice admission today. Faxed final orders to [facility]. Date Signed: 03/10/2017 11:36 AM Electronically Signed By:Stephanie Delgado LCSW
== END 2017-03-09 17:08 | disposition hospice, home (50) | DRG 435 ==
LOC: OBSVTOIN 15:28 → F1N 17:55
PROVIDERS: ADMIT Internal Medicine; ATTEND Internal Medicine
PROC: 0W9G3ZX Drainage of Peritoneal Cavity, Percutaneous Approach, Diagnostic (ICD-10-PCS; principal; 2017-03-01)
PROC: 0W9G3ZX Drainage of Peritoneal Cavity, Percutaneous Approach, Diagnostic (ICD-10-PCS; 2017-03-08)
PROC: 0DJ08ZZ Inspection of Upper Intestinal Tract, Via Natural or Artificial Opening Endoscopic (ICD-10-PCS; 2017-03-09)
DX: C22.0 Liver cell carcinoma (principal); R18.0 Malignant ascites; K70.31 Alcoholic cirrhosis of liver with ascites; I81 Portal vein thrombosis; I85.00 Esophageal varices without bleeding; B18.2 Chronic viral hepatitis C; E87.1 Hypo-osmolality and hyponatremia; K65.2 Spontaneous bacterial peritonitis; N17.9 Acute kidney failure, unspecified; E87.2 Acidosis
CPT/HCPCS: 96365; 97161-GP; 97165-GO; A9585; J0696; J2704; P9047; Q9967

== ENCOUNTER → 2017-03-12 | Outpatient (CLI) | payer MEDICAID ==
[~2017-03-12] MED LIST: LIDOCAINE 1% 300 MG/30 ML SDV ONE
== END ==
LOC: FIMAGING 15:35
PROC: 0W9G3ZZ Drainage of Peritoneal Cavity, Percutaneous Approach (ICD-10-PCS; principal; 2017-03-12)
DX: R18.8 Other ascites (principal); C22.0 Liver cell carcinoma

== ENCOUNTER 2017-03-16 08:30 | Day surgery (SDC) | payer MEDICAID ==
[2017-03-16] MEDS ORDERED: MEPERIDINE 25 MG/ML SYR IVP PRN (08:50)
[2017-03-16] MEDS ORDERED: MIDAZOLAM 2 MG/2 ML VIAL IVP PRN (08:50)
[2017-03-16] MEDS ORDERED: fentaNYL 100 MCG/2 ML INJ IVP PRN (08:50)
[2017-03-16] MEDS ORDERED: NALOXONE HCL 0.4 MG/ML INJ IVP PRN (08:50)
[2017-03-16] MEDS ORDERED: FLUMAZENIL 0.5 MG/5 ML MDV IVP PRN (08:50)
[2017-03-16] MEDS ORDERED: HEPARIN 10,000 UNIT/10 ML MDV IVP PRN (08:53)
[2017-03-16] MEDS ORDERED: PROTAMINE SULFATE 50 MG/5 ML VIAL IVP PRN (08:53)
[2017-03-16] MEDS ORDERED: GLUCAGON HCL 1 MG VIAL IVP PRN (08:53)
[2017-03-16] MEDS ORDERED: ALTEPLASE 2 MG VIAL IVP PRN (08:53)
[2017-03-16] MEDS ORDERED: NS 1,000 ML IV SCH ×2 (09:00)
[2017-03-16 09:42] VITALS: PULSE 90; RESP 18
--- NOTE | 2017-03-16 10:24 | PDPROPOC ---
Sedation Plan of Care Sedation Plan of Care: vital signs stable, mental status noted, patient educated of risks, benefits, alternatives, patient can tolerate sedation ASA Classification: ASA 4 Planned drugs: fentanyl, midazolam Mallampati Score: Class 1 Mallampati Reference Image: Patient passed 3-3-2 rule?: Yes
--- NOTE | 2017-03-16 10:26 | PDGENHP ---
History & Physical Chief Complaint: Rapidly recurring ascites History of Present Illness: Hepatocellular CA Pertinent Past, Social, Family History: Multiple recent paracenteses Cardiorespiratory Assessment: Heart: RRR, 80 bpm, soft systolic murmur. Lungs : clear to auscultation.
[2017-03-16] MEDS ORDERED: NALOXONE HCL 0.4 MG/ML INJ ONE (10:40)
[2017-03-16] MEDS ORDERED: ONDANSETRON 4 MG/2 ML VIAL ONE (10:40)
[2017-03-16] MEDS ORDERED: FLUMAZENIL 0.5 MG/5 ML MDV IVP ONE (10:41)
[2017-03-16] MEDS ORDERED: fentaNYL 100 MCG/2 ML INJ ONE (10:41)
[2017-03-16] MEDS ORDERED: MIDAZOLAM 2 MG/2 ML VIAL ONE (10:41)
[2017-03-16 12:18] VITALS: BP 115/83; TEMP 98.2; O2SAT 96
[2017-03-16] MEDS ORDERED: LIDOCAINE 1% 300 MG/30 ML SDV ONE (15:07)
== END 2017-03-16 12:37 | disposition home or self-care (01) ==
LOC: FIMAGING 08:30
PROC: 0WHG33Z Insertion of Infusion Device into Peritoneal Cavity, Percutaneous Approach (ICD-10-PCS; principal; 2017-03-16 11:27)
DX: R18.0 Malignant ascites (principal); C22.0 Liver cell carcinoma
CPT/HCPCS: C2617; J2250; J2310; J2405; J3010